=== PATIENT | female | born 1935 | race Caucasian/White ===

== ENCOUNTER 2020-04-29 09:07 | Inpatient (IN) ==
--- NOTE | 2020-04-11 15:48 | PAT Medication Instructions ---
Medication Instructions Date of Service April 11, 2020 Home Medications acetaminophen [Acetaminophen Extra Strength] 500 mg PO TID calcium carbonate-vitamin D3 [Calcium 600 + D(3)] 1 cap PO BID cholecalciferol (vitamin D3) [Vitamin D3] 25 mcg PO PM folic acid 1 mg PO QAM gtjdacln-ztkv-snu7-C-frank-bosw [Osteo Bi-Flex Triple Strength] 1 tab PO PM lifitegrast 1 drp OPHTHALMIC (EYE) BID lutein 40 mg PO PM methotrexate sodium 12.5 mg PO WK metoprolol succinate 12.5 mg PO QAM ipidorps-eqw-ihgt-FA-lutein [Centrum Silver Women] 1 tab PO QAM omega 1-ose-ocq-fish oil [Fish Oil] 2 cap PO BID rivaroxaban [Xarelto] 15 mg PO PM ASK your prescriber and surgeon methotrexate sodium 12.5 mg PO WK rivaroxaban [Xarelto] 15 mg PO PM STOP taking 2 weeks before surgery (or as soon as possible if surgery is within 2 weeks) oagfkwgz-brfk-jih3-C-frank-bosw [Osteo Bi-Flex Triple Strength] 1 tab PO PM omega 9-kub-puu-fish oil [Fish Oil] 2 cap PO BID lutein 40 mg PO PM DO NOT take the morning of surgery calcium carbonate-vitamin D3 [Calcium 600 + D(3)] 1 cap PO BID folic acid 1 mg PO QAM Centrum Silver Women] 1 tab PO QAM Take morning of surgery With a small sip of water, OTHERWISE NOTHING TO EAT OR DRINK AFTER MIDNIGHT: acetaminophen [Acetaminophen Extra Strength] 500 mg PO TID (okay to take up to 4 hours prior to surgery if needed) lifitegrast 1 drp OPHTHALMIC (EYE) BID metoprolol succinate 12.5 mg PO QAM Take evening before surgery acetaminophen [Acetaminophen Extra Strength] 500 mg PO TID calcium carbonate-vitamin D3 [Calcium 600 + D(3)] 1 cap PO BID cholecalciferol (vitamin D3) [Vitamin D3] 25 mcg PO PM lifitegrast 1 drp OPHTHALMIC (EYE) BID Other Notes If you have any questions please call us at [phone] or [phone] or or [phone]
--- NOTE | 2020-04-16 10:25 | Anesthesiology Consultation ---
Date of Service April 16, 2020 Assessment & Plan (1) Encounter for pre-operative examination: Per PAT assessment on 04/16: Travel screen- Lives in [facility]. Travel to [facility] for doctor appt. No known COVID-19 positive contacts. No current COVID-19 related symptoms. No hx of COVID-19 testing in past 30 days. Per patient, surgeon is arranging preop COVID testing. Awaiting results. - Hx PONV: patient requesting scope patch. Advised patient to discuss further with anesthesiologist AM DOS regarding appropriate preop anti-emetic management. - Xarelto instructions per surgeon/prescriber. - Case reviewed with Dr. Montiel. Does not feel that patient needs further cardiac evaluation/testing from his perspective. Patient is seeing PCP prior to surgery. Will obtain office visit note (Dr. Radha Driver). Chart Review Chart Review: Patient seen in Pre Admission Testing Teaching & Discussion Pre-Anesthesia Teaching/Discussion Notes: Instructed NPO after midnight before surgery,except medications with 15 cc of water. Medication instructions provided according to the PAT guidelines. History Surgery Operation Date: 01/31/20 07:45 Proposed Procedures p L4-S1 Decompression Fusion, Spinal Cord Monitoring - Nick Shin DO Operation Date: 04/29/20 07:45 Proposed Procedures p L4-S1 Decompression Fusion, Spinal Cord Monitoring - Nick Shin DO Height/Weight Height: 5 ft 2 in Weight: 56.3 kg Allergies Allergy/AdvReac Type Severity Reaction Status Date / Time cevimeline AdvReac Unknown vision Verified 04/16/20 13:16 affected fentanyl AdvReac Unknown severe Verified 04/16/20 13:16 nausea loratadine AdvReac Unknown Headache Verified 04/09/20 10:10 NSAIDS (Non-Steroidal AdvReac Unknown n/v Verified 04/09/20 10:10 Anti-Inflamma oxycodone [From OxyContin] AdvReac Vomiting Verified 04/09/20 10:31 pregabalin [From Lyrica] AdvReac Dizziness Verified 04/09/20 10:10 Medications Home Medications Medication Instructions Recorded Confirmed Last Taken acetaminophen [Acetaminophen Extra 500 mg PO TID 04/09/20 04/09/20 Unknown Strength] calcium carbonate-vitamin D3 1 cap PO BID 04/09/20 04/09/20 Unknown [Calcium 600 + D(3)] cholecalciferol (vitamin D3) 25 mcg PO PM 04/09/20 04/09/20 Unknown [Vitamin D3] folic acid 1 mg PO QAM 04/09/20 04/09/20 Unknown qqenjyxj-inij-qxn8-C-frank-bosw 1 tab PO PM 04/09/20 04/09/20 Unknown [Osteo Bi-Flex Triple Strength] lifitegrast 1 drp OPHTHALMIC (EYE) BID 04/09/20 04/09/20 Unknown lutein 40 mg PO PM 04/09/20 04/09/20 Unknown methotrexate sodium 12.5 mg PO WK 04/09/20 04/09/20 Unknown metoprolol succinate 12.5 mg PO QAM 04/09/20 04/09/20 Unknown nxtdwgyj-btt-sqrp-FA-lutein 1 tab PO QAM 04/09/20 04/09/20 Unknown [Centrum Silver Women] omega 1-sui-bfh-fish oil [Fish Oil] 2 cap PO BID 04/09/20 04/09/20 Unknown rivaroxaban [Xarelto] 15 mg PO PM 04/09/20 04/09/20 Unknown Past Medical History Medical History Atrial fibrillation single episode during 2016 admission for choking/elevated enzymes- on Metoprolol/Xarelto, sinus rhythm per 04/2020 EKG CAD (coronary artery disease) mild, non-obstructive per 2017 cardiac cath Choking Hx of choking on a pill 01/2017. Patient's did heimlich maneuver. Patient then found to have elevated enzymes. Had cardiac cath with mild, non- obstructive CAD. 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 History of breast biopsy left History of cataract surgery bilat History of colonoscopy History of esophagogastroduodenoscopy (EGD) History of hysterectomy History of tonsillectomy History of tooth extraction History of total hip arthroplasty left Vaginal prolapse with repair Past Anesthesia History No Family Hx of Anesthesia Complications and Other (patient reports delay with spinal wearing off with left hip arthroplasty repair (no issues with other hip surgery)) History of PONV No Hx of Motion Sickness and History of PONV Social History Smoking Status: Never smoker Do You Dip or Chew Tobacco: No Hx Alcohol Use: No Hx Substance Use: No substance use type: does not use Review of Systems Patient denies chest pain, shortness of breath, fever, chills, cough, wheezing, palpitations. Physical Exam Vital Signs VITALS BP 178/76 P 53 TEMP 98.4 SP02 96% RESP 16 PHYSICAL Full neck and c-spine range of motion. Full TMJ range of motion. TMD 3 finger breaths Mallampati Score 2 Dentition: upper/lower full dentures Lungs: clear throughout to auscultation Cardiac: regular rate and rhythm, no murmurs noted Spine: normal Carotid arteries: negative bruit Extremities: no edema Testing Laboratory Results 04/16/20 10:49 04/16/20 10:49 PT 10.5 Seconds (9.0-12.0) 04/16/20 10:49 INR 1.0 (0.9-1.1) 04/16/20 10:49 APTT 27.9 Seconds (21.0-31.0) 04/16/20 10:49 Urine Color Yellow 04/16/20 10:49 Urine Appearance Clear (Clear) 04/16/20 10:49 Urine pH 7.5 (4.5-7.5) 04/16/20 10:49 Ur Specific [place] 1.011 (1.000-1.030) 04/16/20 10:49 Urine Protein Negative (Negative) 04/16/20 10:49 Urine Glucose (UA) Negative (Negative) 04/16/20 10:49 Urine Ketones Negative (Negative) 04/16/20 10:49 Urine Nitrite Negative (Negative) 04/16/20 10:49 Ur Leukocyte Esterase Negative (Negative) 04/16/20 10:49 Blood Type O Negative 04/16/20 10:49 Antibody Screen NEGATIVE 04/16/20 10:49 Electrocardiogram Date: 04/16/20 SB with first degree AVB at 47bpm. LAD. LVH with repolarization abnormality. 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 Chest X-Ray Date: 08/09/19 Findings: + NAD Echocardiogram Date: 03/15/17 EF 50-55%. Moderate NC. Mild AR. Minimal global HK. Cardiac Catheterization Date: 02/01/17 1st diagonal ostial- 50%. No other significant CAD. EF 40%. Cervical Spine Date: 04/16/20 Demineralized appearance the bones. No prevertebral soft tissue swelling. Severe multilevel disc space narrowing with spondylitic spurring and advanced facet arthrosis. Normal predental interval. No subluxation with neutral, flexion or extension. 3 mm anterolisthesis C5 on C6 unchanged throughout. IMPRESSION: Unchanged alignment with neutral, flexion and extension. Multilevel advanced degenerative changes are redemonstrated.
--- NOTE | 2020-04-16 11:27 | XRay Report ---
XR cervical spine 2 or 3V HISTORY: 85 years-old Female RHEUMATOID ARTHRITIS preoperative exam. History of inflammatory arthrit is COMPARISON: Cervical spine radiographs 07/14/2017 TECHNIQUE: 3 views of the cervical spine FINDINGS: Demineralized appearance the bones. No prevertebral soft tissue swelling. Severe multilevel disc spac e narrowing with spondylitic spurring and advanced facet arthrosis. Normal predental interval. No sub luxation with neutral, flexion or extension. 3 mm anterolisthesis C5 on C6 unchanged throughout. IMPRESSION: Unchanged alignment with neutral, flexion and extension. Multilevel advanced degenerative changes are redemonstrated. ACT 112: Negative or not required by law. The above report was generated using voice recognition software. It may contain grammatical, syntax o r spelling errors. Electronically signed by: Christiano Valenzuela M.D. 04/16/2020 11:25 AM
[2020-04-16 12:23] LABS: Basophils # (auto) 0.02 K/uL (0-0.2); Basophils % (auto) 0.3 %; Eosinophils # (auto) 0.08 K/uL (0-0.5); Eosinophils % (auto) 1.1 %; Hematocrit (blood only) 37.6 % (37-47); Hemoglobin 12.6 g/dL (12.0-16.0); Immature Granulocytes # (auto) 0.01 K/uL (0.00-0.02); Immature Granulocytes % (auto) 0.1 %; Lymphocytes # (auto) 1.95 K/uL (1.2-3.4); Lymphocytes % (auto) 26.9 %; Mean Corpuscular Hemoglobin 34.7 pg (25-34); Mean Corpuscular Hgb Conc 33.5 g/dL (32-36); Mean Corpuscular Volume 103.6 fL (80-100); Mean Platelet Volume 9.8 fL (7.4-10.4); Monocytes # (auto) 0.61 K/uL (0.11-0.59); Monocytes % (auto) 8.4 %; Neutrophils # (auto) 4.59 K/uL (1.4-6.5); Neutrophils % (auto) 63.2 %; Platelet Count 297 K/uL (130-400); RDW Coefficient of Variation 13.6 % (11.5-14.5); RDW Standard Deviation 51.4 fL (36.4-46.3); Red Blood Count 3.63 M/uL (4.2-5.4); White Blood Count 7.26 K/uL (4.8-10.8)
[2020-04-16 12:26] LABS: Appearance Urine Clear (Clear); Bilirubin Urine Negative (Negative); Blood Urine Negative (Negative); Color Urine Yellow; Glucose Urine UA Negative (Negative); Ketones Urine Negative (Negative); Leukocyte Esterase Urine Negative (Negative); Nitrite Urine Negative (Negative); Protein Urine Negative (Negative); Specific Gravity Urine 1.011 (1.000-1.030); Urobilinogen Urine Negative (Negative); pH Urine 7.5 (4.5-7.5)
[2020-04-16 12:36] LABS: Partial Thromboplastin Time 27.9 Seconds (21.0-31.0); Prothrombin Time 10.5 Seconds (9.0-12.0)
[2020-04-16 13:56] LABS: BUN Creatinine Ratio 25.6 (10-20); Calcium 8.8 mg/dl (8.5-10.1); Creatinine Clr Calc Pharmacy 58.1 ml/min; Est GFR (African American) 98.4; Est GFR (Non-African American) 84.9; Potassium 4.1 mmol/L (3.5-5.1)
--- NOTE | 2020-04-17 06:43 | Electrocardiogram Report ---
Test Reason : Blood Pressure : / mmHG Vent. Rate : 047 BPM Atrial Rate : 047 BPM P-R Int : 218 ms QRS Dur : 098 ms QT Int : 468 ms P-R-T Axes : -02 -31 043 degrees QTc Int : 414 ms Sinus bradycardia with 1st degree A-V block Left axis deviation Left ventricular hypertrophy with repolarization abnormality Abnormal ECG When compared with ECG of 06-FEB-2016 16:12, No significant change was found Confirmed by Jam Maldonado ([id number]) on 04/17/2020 6:43:20 AM Referred By: Nick Shin Confirmed By:Jam Maldonado
[~2020-04-29 09:07] MED LIST: ACETAMINOPHEN 500 MG TAB PO SCH; CEFAZOLIN 1000MG 1,000 MG/7.5 ML SYR IV SCH; CeleBREX 200 MG CAP PO SCH; GABAPENTIN 300 MG CAP PO SCH; GLYCOPYRROLATE 0.2 MG/ML VIAL ONE; LIDOCAINE HCL 2% 2 ML VIAL/AMP(20MG/ML) INFIL ONE; LR 15ML/HR IV SCH; NEOSTIGMINE METHYLSULFATE 1 MG/ML 10ML VIAL ONE; ONDANSETRON INJ 2 MG/ML 2 ML VIAL ONE; PROPOFOL IV EMULSION 10 MG/ML 20 ML VIAL IV ONE; ROCURONIUM BROMIDE 10 MG/ML 5 ML VIAL IV ONE; fentaNYL citrate 100 MCG/2 ML VIAL ONE
[2020-04-29] MEDS ORDERED: CeleBREX 200 MG CAP ONE (09:31)
[2020-04-29] MEDS ORDERED: ACETAMINOPHEN 500 MG TAB ONE (09:31)
[2020-04-29] MEDS ORDERED: GABAPENTIN 300 MG CAP ONE (09:31)
[2020-04-29] MEDS ORDERED: CEFAZOLIN 1,000 MG/7.5 ML IV PUSH IV ONE (09:32)
[2020-04-29] MEDS ORDERED: PROMETHAZINE HCL 12.5 MG in SODIUM CHLORIDE 0.9% 50 ML IV PRN ×2 (10:23→16:00)
[2020-04-29] MEDS ORDERED: ATROPINE SULFATE 0.1 MG/ML 10ML SYR IV PRN (10:23)
[2020-04-29] MEDS ORDERED: ONDANSETRON INJ 2 MG/ML 2 ML VIAL IV PRN ×2 (10:23→16:00)
[2020-04-29] MEDS ORDERED: ePHEDrine sulfate 50 MG/ML AMP IV PRN (10:23)
--- NOTE | 2020-04-29 10:52 | History & Physical Bridge Note ---
Date of Service April 29, 2020 History & Physical Bridge Note I have examined the patient, reviewed the History & Physical and in the interval since the performance of the History & Physical I have noted the following changes of clinical significance: no changes noted
--- NOTE | 2020-04-29 10:53 | History & Physical Report ---
Date of Service April 29, 2020 Assessment & Plan (1) Neurogenic claudication due to lumbar spinal stenosis: L4-S1 decompression fusion Present on Admission?: Yes History of Present Illness Chief Complaint: Back and bilateral leg pain Primary Care Provider: Radha Driver This is an 85-year-old female who presents with worsening back and bilateral leg pain. After failing course of nonoperative care is here for surgical invention. Allergies Allergy/AdvReac Type Severity Reaction Status Date / Time cevimeline AdvReac Unknown vision Verified 04/29/20 10:01 affected fentanyl AdvReac Unknown severe Verified 04/29/20 10:01 nausea loratadine AdvReac Unknown Headache Verified 04/29/20 10:01 NSAIDS (Non-Steroidal AdvReac Unknown n/v Verified 04/29/20 10:01 Anti-Inflamma oxycodone [From OxyContin] AdvReac Vomiting Verified 04/29/20 10:01 pregabalin [From Lyrica] AdvReac Dizziness Verified 04/29/20 10:01 Home Medications Home Medications Medication Instructions Recorded Confirmed Type acetaminophen [Acetaminophen Extra 500 mg PO TID 04/09/20 04/29/20 History Strength] calcium carbonate-vitamin D3 1 cap PO BID 04/09/20 04/29/20 History [Calcium 600 + D(3)] cholecalciferol (vitamin D3) 25 mcg PO PM 04/09/20 04/29/20 History [Vitamin D3] folic acid 1 mg PO QAM 04/09/20 04/29/20 History sndkkwln-nicx-anm9-C-frank-bosw 1 tab PO PM 04/09/20 04/29/20 History [Osteo Bi-Flex Triple Strength] lifitegrast 1 drp OPHTHALMIC (EYE) BID 04/09/20 04/29/20 History lutein 40 mg PO PM 04/09/20 04/29/20 History methotrexate sodium 12.5 mg PO WK 04/09/20 04/29/20 History metoprolol succinate 12.5 mg PO QAM 04/09/20 04/29/20 History nrvtdsve-ewj-gjtd-FA-lutein 1 tab PO QAM 04/09/20 04/29/20 History [Centrum Silver Women] omega 9-clv-bls-fish oil [Fish Oil] 2 cap PO BID 04/09/20 04/29/20 History rivaroxaban [Xarelto] 15 mg PO PM 04/09/20 04/29/20 History Past Med/Surg History Medical History Atrial fibrillation single episode during 2016 admission for choking/elevated enzymes- on Metoprolol/Xarelto, sinus rhythm per 04/2020 EKG CAD (coronary artery disease) mild, non-obstructive per 2016 cardiac cath Choking Hx of choking on a pill 01/2017. Patient's did heimlich maneuver. Patient then found to have elevated enzymes. Had cardiac cath with mild, non- obstructive CAD. 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 History of breast biopsy left History of cataract surgery bilat History of colonoscopy History of esophagogastroduodenoscopy (EGD) History of hysterectomy History of tonsillectomy History of tooth extraction History of total hip arthroplasty left Vaginal prolapse with repair Family History Aunt Diabetes Social History Preferred Language: Bhutanese Communication Ability: Effective 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 Heart regular rate and rhythm. Lungs clear to auscultation. Results & Data Vital Signs (Past 12 Hours) Vital Signs Temp Pulse Resp BP Pulse Ox 04/29/20 10:06 36.4 C L 60 20 193/94 H 99
[2020-04-29] MEDS ORDERED: BACITRACIN INJ 50,000 UNIT VIAL ONE (11:06)
[2020-04-29] MEDS ORDERED: BUPIVACAINE/EPINEPHRINE 0.25% 1:200,000 30 ML VIAL ONE (11:06)
[2020-04-29] MEDS ORDERED: ePHEDrine sulfate 50 MG/ML SYR ONE (12:19)
[2020-04-29] MEDS ORDERED: FLOSEAL HEMOSTATIC MATRIX 10ML TOP ONE (13:00)
--- NOTE | 2020-04-29 13:49 | Operative Report ---
Post Operative Report Pre & Post Diagnosis Operation Date: 01/31/20 07:45 <No data on this case meets the specified criteria> Operation Date: 04/29/20 11:05 Pre-Op Diagnosis: Spinal Stenosis, Lumbar Region with Neurogenic Claudication L4-S1 Post-Op Diagnosis: Spinal Stenosis, Lumbar Region with Neurogenic Claudication L4-S1 I identified the patient and participated in the time-out.: Yes Procedure Operation Date: 01/31/20 07:45 <No data on this case meets the specified criteria> Operation Date: 04/29/20 11:05 Actual Procedures #1 lumbar decompression with bilateral medial facetectomies and foraminotomies L4-5 L5-S1. #2 posterior spinal fusion L4-5 L5-S1. #3 placement posterior instrumentation L4-5 L5-S1. #4 placement of local autograft in the posterior lateral gutters per #5 placement for his collagen sponge and master graft in the posterior lateral gutters L4-5 L5-S1. Surgeon Nick Shin, Collections And Archives Director Hien Gallardo Estimated Blood Loss 100 Findings Consistent with Post-Op Diagnosis Specimens None Indications This is an 85-year-old female who presents with above-mentioned diagnosis after failed extensive course of nonoperative care is here for the above-mentioned procedure. Description of Procedure Patient was met with identified informed consent obtained. Patient was then taken to the operative suite underwent an patient placed in a prone position the Moshe table on top of the Josiah frame. All bony prominences well-padded eyes inspected to ensure no external pressure placed upon them. This point the lumbar spine was prepped and draped in normal sterile fashion. Sharp dissection with the assistance of Bovie cautery was performed down to and exposing the lamina and transverse processes of L4-L5 and sacral ala bilaterally. From a caudal cephalad fashion complete laminectomy of L5 and L4 was performed including bilateral medial facetectomies and foraminotomies addressing severe spinal stenosis. Pedicle screws were then placed in L4-L5 and the S1 levels bilaterally with assistance of fluoroscopy and appropriate sized diane locked into position. The transverse processes of L4 and L5 and sacral ala were then burred to subcortical bleeding bone. Infuse collagen sponge master graft local autograft was then placed in the posterior gutters. 15 round JOANNA drain inserted. Incision was then closed with 1 Vicryl the fascia 2-0 Vicryl subcutaneously and 4 Monocryl for final skin closure. Steri-Strip sterile dressings placed. Patient will continue PACU stable condition. Please note spinal cord monitoring was utilized that the procedure no changes noted. I attest to the content of the Intraoperative Record and any orders documented therein. Any exceptions are noted below.
--- NOTE | 2020-04-29 13:51 | Fluoroscopy Report ---
INTRAOPERATIVE RADIOGRAPHS CLINICAL HISTORY: L4-S1 spinal fusion. Fluoroscopy time: 28 seconds. FINDINGS: 2 spot fluoroscopic views of the lumbar spine are presented. There has been laminectomy and posterior fusion from L4-S1. Interpedicular screws are present at all levels. The orthopedic hardwar e appears intact. IMPRESSION: Intraoperative images from L4-S1 spinal fusion as above. Electronically signed by: Lion Zarate M.D. 04/29/2020 1:49 PM
[2020-04-29] MEDS: HYDROmorphone INJ 1 MG/ML SYRINGE IV PRN ×3 (14:14→14:29)
--- NOTE | 2020-04-29 14:44 | Anesthesiology Progress Note ---
Date of Service April 29, 2020 Anesthesia Post Procedure Vital Signs Vital Signs: Temp Pulse Pulse Resp BP BP Pulse Ox 04/29/20 14:40 57 L 15 180/64 H 98 04/29/20 14:30 58 L 17 148/70 H 97 04/29/20 14:20 61 17 165/84 H 100 04/29/20 14:10 64 15 172/68 H 100 04/29/20 14:01 36.3 C L 79 21 159/78 H 100 04/29/20 10:06 36.4 C L 60 20 193/94 H 99 Pain Intensity Back: Pain Intensity: 4 Transfer of Care Handoff Completed per policy Notes Mental Status: alert / awake / arousable and participated in evaluation Patient Amnestic to Procedure: Yes Nausea / Vomiting: adequately controlled Pain: adequately controlled Airway Patency, RR, SpO2: stable & adequate BP & HR: stable & adequate Hydration State: stable & adequate Anesthetic Complications: no major complications apparent and Pt Satisfied with anesthetic care
[2020-04-29] MEDS ORDERED: NALOXONE HCL 0.4 MG/1 ML VIAL/CARP IV PRN (16:00)
[2020-04-29] MEDS ORDERED: LORazepam 0.5 MG/1 ML VIAL IV PRN (16:00)
[2020-04-29] MEDS ORDERED: bisacodyL 10 MG SUPP PR PRN (16:00)
[2020-04-29] MEDS ORDERED: ALUMINUM/MAGNESIUM SUSP 30 ML UDC PO PRN (16:00)
[2020-04-29] MEDS ORDERED: LORazepam 0.5 MG TAB PO PRN (16:00)
[2020-04-29] MEDS ORDERED: DO NOT ADMINISTER PNEUMOCOCCAL VACCINE PRN (16:00)
[2020-04-29] MEDS ORDERED: HYDROmorphone INJ 1 MG/ML SYRINGE IV PRN (16:00)
[2020-04-29] MEDS ORDERED: METOCLOPRAMIDE HCL INJ 5 MG/ML 2 ML VIAL IV PRN (16:00)
[2020-04-29] MEDS ORDERED: HYDROmorphone INJ 0.5 MG/0.5 ML SYR IV PRN (16:00)
[2020-04-29] MEDS ORDERED: FAMOTIDINE 20 MG TAB PO PRN (16:00)
[2020-04-29] MEDS ORDERED: SOD PHOSPHATE/SOD BIPHOSPHATE ENEMA 132 ML BTL PR PRN (16:00)
[2020-04-29] MEDS ORDERED: ACETAMINOPHEN 1,000 MG/100 ML VIAL IV PRN (16:00)
[2020-04-29] MEDS ORDERED: MAGNESIUM HYDROXIDE SUSP 30 ML UDC PO PRN (16:00)
[2020-04-29] MEDS ORDERED: DO NOT ADMINISTER FLU VACCINE PRN (16:00)
--- NOTE | 2020-04-29 16:00 | Hospitalist Consultation ---
Date of Consultation April 29, 2020 Assessment & Plan (1) S/P spinal surgery: This is an 85-year-old female with PMH of hypertension, rheumatoid arthritis, paroxysmal atrial fibrillation on anticoagulation who is POD#0 s/p L4-S1 decompression and fusion by Dr. Shin. -POD#0 s/p L4-S1 decompression and fusion by Dr. Shin -Pt is doing well post-operatively -Per ortho for pain control, wound care, anticoagulation and activities -Monitor H&H (EBL: 100ml, JOANNA output 80 ml). Continue incentive spirometry, PT/OT when appropriate (2) Atrial fibrillation: Continue metoprolol -Xarelto has been held since 04/26. Directed by cardiology to resume as soon as possible post surgery, per primary service (3) HTN (hypertension): BP elevated at 192/72 postoperatively. Repeat BP 179/67 -Optimize pain control. Reduce fluid rate. Continue home metoprolol 12.5mg daily (4) Rheumatoid arthritis: Methotrexate held for 2 weeks preoperatively. Follow-up with PCP for instructions to resume PCP: Radha Driver Dispo: Per primary service Thank you for this consultation. We will follow the patient with you during their hospital stay. You can reach a member of the [facility] Team 03/05 via pager @ [phone]. Patient seen in collaboration with Dr. Landry. Please see addendum. Supervising Physician Co-Signing Physician Notes Patient is an 85-year-old female with history of hypertension, rheumatoid arthritis, paroxysmal atrial fibrillation and other medical problems was seen and examined postop after having L4-S1 decompression and fusion by Dr. Shin. Patient is drowsy postoperatively. She denies any chest pain, shortness of breath, dizziness but admits to have some nausea but no vomiting. Complains of pain at surgical site. Offers no other complaints. On exam patient is moderately built and nourished, no apparent distress, drowsy, normocephalic atraumatic, lungs are clear to auscultation, S1-S2,+ murmur, abdomen soft, nontender, normal bowel sounds, no pedal edema, grossly no focal neurologic deficits,back-surgical site in dressing. Patient is consulted postop for medical management. Monitor for postop anemia. Bowel regimen to prevent constipation. Incentive spirometry. Activity, wound care, pain control as per primary team. Continue metoprolol for atrial fibrillation. Resume Xarelto as able for anticoagulation. I personally reviewed the record. Patient is interviewed and examined at bedside. Patient's care is coordinated with Juli Salgado PA-C. Please refer to the documentation above for details of patient's presentation and for discussion of other issues. History of Present Illness Reason for Consultation: Postop medical management Attending Physician: Nick Shin, History of Present Illness This is an 85-year-old female with PMH of hypertension, rheumatoid arthritis, paroxysmal atrial fibrillation on anticoagulation who is POD#0 s/p L4-S1 decompression and fusion by Dr. Shin. Patient feels well postoperatively. Endorses some minor surgical site pain as well as some nausea but no vomiting. Denies any fever, chills, lightheadedness, cough, chest pain, shortness of breath, abdominal pain, dysuria, diarrhea or constipation. Blood pressure at bedside 179/67, which is decreased from previous rate of 192/72. Follows with [facility] of [facility] for paroxysmal atrial fibrillation and was instructed to hold Xarelto 3 days prior to surgery. Also takes methotrexate weekly for rheumatoid arthritis but was told to stop taking 2 weeks prior to surgery. Allergies Allergy/AdvReac Type Severity Reaction Status Date / Time cevimeline AdvReac Unknown vision Verified 04/29/20 10:01 affected fentanyl AdvReac Unknown severe Verified 04/29/20 10:01 nausea loratadine AdvReac Unknown Headache Verified 04/29/20 10:01 NSAIDS (Non-Steroidal AdvReac Unknown n/v Verified 04/29/20 10:01 Anti-Inflamma oxycodone [From OxyContin] AdvReac Vomiting Verified 04/29/20 10:01 pregabalin [From Lyrica] AdvReac Dizziness Verified 04/29/20 10:01 Home Medications Home Medications Medication Instructions Recorded Confirmed Type acetaminophen [Acetaminophen Extra 500 mg PO TID 04/09/20 04/29/20 History Strength] calcium carbonate-vitamin D3 1 cap PO BID 04/09/20 04/29/20 History [Calcium 600 + D(3)] cholecalciferol (vitamin D3) 25 mcg PO PM 04/09/20 04/29/20 History [Vitamin D3] folic acid 1 mg PO QAM 04/09/20 04/29/20 History vvuqcxls-sidh-mnz2-C-frank-bosw 1 tab PO PM 04/09/20 04/29/20 History [Osteo Bi-Flex Triple Strength] lifitegrast 1 drp OPHTHALMIC (EYE) BID 04/09/20 04/29/20 History lutein 40 mg PO PM 04/09/20 04/29/20 History methotrexate sodium 12.5 mg PO WK 04/09/20 04/29/20 History metoprolol succinate 12.5 mg PO QAM 04/09/20 04/29/20 History silzeqjb-qyp-hpwh-FA-lutein 1 tab PO QAM 04/09/20 04/29/20 History [Centrum Silver Women] omega 6-eej-sda-fish oil [Fish Oil] 2 cap PO BID 04/09/20 04/29/20 History rivaroxaban [Xarelto] 15 mg PO PM 04/09/20 04/29/20 History Patient History Medical History (Updated 04/29/20 @ 16:31 by Juli Salgado PA-C) Atrial fibrillation CAD (coronary artery disease) mild, non-obstructive per 2017 cardiac cath Choking Hx of choking on a pill 01/2017. Patient's did heimlich maneuver. Patient then found to have elevated enzymes. Had cardiac cath with mild, non- obstructive CAD. 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 History of breast biopsy left History of cataract surgery bilat History of colonoscopy History of esophagogastroduodenoscopy (EGD) History of hysterectomy History of tonsillectomy History of tooth extraction History of total hip arthroplasty left Vaginal prolapse with repair Family History Aunt Diabetes Other Heart disease Social History Smoking Status: Never smoker Second Hand Exposure: No; Do You Dip or Chew Tobacco: No; Tobacco Cessation Education Requested by Patient: No Hx Alcohol Use: No Hx Substance Use: No Preferred Language: Ukrainian Communication Ability: Effective Outpatient Pharmacy Manager Required: No Beliefs That Will Affect Care: None Current Living Situation: Spouse Other Information That Helps Us Care for You: No Feels Safe at Home: Yes Safety Concerns: Feels Safe At This Time Review of Systems Review of Systems: At least ten systems reviewed and negative except as noted in the HPI. Physical Exam Physical Exam: General Appearance: WD/WN, vitals as above, NAD, lying in bed, pleasant Head: normocephalic, atraumatic Eyes: normal inspection, PERRL, conjunctivae normal, anicteric sclerae ENT: external ear and nose normal, oropharynx normal Neck: trachea midline, no thyromegaly, normal visual inspection Respiratory: normal respiratory effort, lungs clear to auscultation, no wheeze, rales, rhonchi Cardiovascular: regular rate, rhythm, no murmur, normal peripheral pulses Chest: normal inspection of chest Abdomen/GI: normal bowel sounds, soft, nontender, no hepatosplenomegaly Extremities/Musculoskeletal: no cyanosis or clubbing, extremities motor strength 5/5. + Lumbosacral dressing clean, dry, intact. JOANNA drain visualized with sanguineous output Neurologic: PERRL, CN's II-XI intact bilaterally and moves all extremities Psychiatric: A+Ox3, euthymic affect Skin: no rashes, normal color, warm/dry Results & Data Results & Data ([facility]) Vital Signs (Past 12 Hours) Vital Signs Temp Pulse Pulse Resp BP BP Pulse Ox 04/29/20 15:32 36.4 C L 60 16 188/72 H 99 04/29/20 15:15 55 L 20 161/61 H 98 04/29/20 15:00 57 L 15 165/65 H 98 04/29/20 14:50 36.4 C L 55 L 17 177/64 H 99 04/29/20 14:40 57 L 15 180/64 H 98 04/29/20 14:30 58 L 17 148/70 H 97 04/29/20 14:20 61 17 165/84 H 100 04/29/20 14:10 64 15 172/68 H 100 04/29/20 14:01 36.3 C L 79 21 159/78 H 100 04/29/20 10:06 36.4 C L 60 20 193/94 H 99
[2020-04-29] MEDS: SODIUM CHLORIDE 0.9% 1000ML 1,000 ML IV SCH ×2 (16:02→23:19)
[2020-04-29] MEDS: ONDANSETRON 4 MG OD TAB PO PRN (19:15)
[2020-04-29] MEDS: CEFAZOLIN 1000MG 1,000 MG/7.5 ML SYR IV SCH (20:49)
[2020-04-29] MEDS: CHOLECALCIFEROL 1,000 UNITS 25 MCG TAB PO SCH (20:49)
[2020-04-29] MEDS: CALCIUM 600MG + VIT D 400 IU TAB PO SCH (20:49)
[2020-04-29] MEDS: DOCUSATE SODIUM/SENNA 50/8.6MG TAB PO SCH (21:31)
[2020-04-30] MEDS: CEFAZOLIN 1000MG 1,000 MG/7.5 ML SYR IV SCH (03:44)
[2020-04-30] MEDS: TRAMADOL HCL 50 MG TABLET PO PRN (03:50)
[2020-04-30] MEDS: POLYETHYLENE (MIRALAX) 17 GM PACK PO SCH ×4 (05:57→23:37)
[2020-04-30] MEDS: ONDANSETRON 4 MG OD TAB PO PRN (05:57)
[2020-04-30 06:32] LABS: Basophils # (auto) 0.01 K/uL (0-0.2); Basophils % (auto) 0.1 %; Hematocrit (blood only) 30.9 % (37-47); Hemoglobin 10.2 g/dL (12.0-16.0); Immature Granulocytes # (auto) 0.01 K/uL (0.00-0.02); Immature Granulocytes % (auto) 0.1 %; Lymphocytes # (auto) 1.27 K/uL (1.2-3.4); Lymphocytes % (auto) 16.1 %; Mean Corpuscular Hemoglobin 33.3 pg (25-34); Monocytes # (auto) 0.61 K/uL (0.11-0.59); Monocytes % (auto) 7.8 %; Neutrophils # (auto) 5.97 K/uL (1.4-6.5); Neutrophils % (auto) 75.9 %; Platelet Count 243 K/uL (130-400); RDW Coefficient of Variation 13.2 % (11.5-14.5); RDW Standard Deviation 48.7 fL (36.4-46.3); Red Blood Count 3.06 M/uL (4.2-5.4); White Blood Count 7.87 K/uL (4.8-10.8)
[2020-04-30 07:04] LABS: BUN Creatinine Ratio 19.2 (10-20); Calcium 7.6 mg/dl (8.5-10.1); Creatinine Clr Calc Pharmacy 72.6 ml/min; Est GFR (African American) 105.9; Est GFR (Non-African American) 91.4; Potassium 3.9 mmol/L (3.5-5.1)
[2020-04-30] MEDS: SODIUM CHLORIDE 0.9% 1000ML 1,000 ML IV SCH ×2 (08:01→23:41)
--- NOTE | 2020-04-30 08:02 | Anesthesiology Progress Note ---
Date of Service April 30, 2020 Anesthesia Post Procedure Vital Signs Vital Signs: Temp Pulse Pulse Resp BP BP Pulse Ox 04/30/20 07:44 36.6 C 70 18 145/65 H 97 04/30/20 04:04 36.5 C 75 16 143/66 H 96 04/29/20 23:35 36.4 C L 69 16 143/72 H 96 04/29/20 19:17 36.5 C 65 16 171/72 H 95 04/29/20 17:29 36.3 C L 63 16 176/67 H 94 04/29/20 16:32 36.4 C L 57 L 17 180/73 H 97 04/29/20 16:05 36.4 C L 60 16 192/72 H 99 04/29/20 15:32 36.4 C L 60 16 188/72 H 99 04/29/20 15:15 55 L 20 161/61 H 98 04/29/20 15:00 57 L 15 165/65 H 98 04/29/20 14:50 36.4 C L 55 L 17 177/64 H 99 04/29/20 14:40 57 L 15 180/64 H 98 04/29/20 14:30 58 L 17 148/70 H 97 04/29/20 14:20 61 17 165/84 H 100 04/29/20 14:10 64 15 172/68 H 100 04/29/20 14:01 36.3 C L 79 21 159/78 H 100 04/29/20 10:06 36.4 C L 60 20 193/94 H 99 Pain Intensity Back: Pain Intensity: 2 Notes Mental Status: alert / awake / arousable and participated in evaluation Patient Amnestic to Procedure: Yes Nausea / Vomiting: see Notes below Pain: adequately controlled Airway Patency, RR, SpO2: stable & adequate BP & HR: stable & adequate Hydration State: stable & adequate Notes: Patient stated that she has had nausea since PACU that will not go away. Patient has history of PONV. No vomiting with this procedure. Encouraged to inform anesthesia of this experience for future anesthetics.
[2020-04-30] MEDS: MULTIVITAMIN TAB PO SCH (09:00)
[2020-04-30] MEDS: METOPROLOL SUCC 25MG EXT REL TAB PO SCH (09:00)
[2020-04-30] MEDS: FOLIC ACID 1 MG TAB PO SCH (09:01)
[2020-04-30] MEDS: CALCIUM 600MG + VIT D 400 IU TAB PO SCH ×2 (09:01→21:24)
--- NOTE | 2020-04-30 09:16 | Hospitalist Progress Note ---
Date of Service April 30, 2020 Assessment & Plan (1) S/P spinal surgery: This is an 85-year-old female with PMH of hypertension, rheumatoid arthritis, paroxysmal atrial fibrillation on anticoagulation who is POD#1 s/p L4-S1 decompression and fusion by Dr. Shin. -POD#1 s/p L4-S1 decompression and fusion by Dr. Shin -Pt is doing well post-operatively -Per ortho for pain control, wound care, anticoagulation and activities -Monitor H&H (hgb of 10.1 today, 12.6 yesterday). Continue incentive spirometry, PT/OT when appropriate -Zofran for nausea as needed but improving. No vomiting. Tolerating diet (2) Atrial fibrillation: Continue metoprolol -Xarelto has been held since 04/26. Directed by cardiology to resume as soon as possible post surgery, per primary service (3) HTN (hypertension): BP improved to 145/65 -Optimize pain control. Continue home metoprolol 12.5mg daily (4) Rheumatoid arthritis: Methotrexate held for 2 weeks preoperatively. Follow-up with PCP for instructions to resume PCP: Radha Driver Dispo: Per primary service Thank you for this consultation. We will follow the patient with you during their hospital stay. You can reach a member of the [facility] Hospitalist Team 03/05 via pager @ [phone]. Patient seen in collaboration with Dr. Escamilla. Please see addendum. Admission and Anticipated Discharge Date Admission Date: April 29, 2020 Supervising Physician Co-Signing Physician Notes Pt was seen and examined. Agreed with Juli BHAKTA exam, assessment and plan. 85-year-old female with PMH of hypertension, rheumatoid arthritis, paroxysmal atrial fibrillation on anticoagulation, s/p day #1 for L4-S1 decompression and fusion performed by Dr. Shin. No postop complications noted. Xarelto help due to recent surgical procedure. Xarelto will resume once bleeding stable as per ortho. Continue pain control as per ortho. Continue Incentive spirometry. Fall precaution. Continue PT/OT. Monitor H/H. MD Andi Subjective Seen and examined in 307 bed 1. Patient feeling well today despite some continued nausea. No vomiting. And nausea has improved since yesterday. Some surgical site pain with movement. Denies any fever, chills, lightheadedness, headache, chest pain, shortness of breath, abdominal pain, dysuria, diarrhea or constipation. Still with Rea catheter in place. Passing some flatus and feels that she may have a bowel movement soon. Review of Systems Review of Systems: At least ten systems reviewed and negative except as noted in the HPI. Physical Exam Physical Exam: General Appearance: WD/WN, vitals as above, NAD, lying in bed, pleasant Head: normocephalic, atraumatic Eyes: normal inspection, PERRL, conjunctivae normal, anicteric sclerae ENT: external ear and nose normal, oropharynx normal Neck: trachea midline, no thyromegaly, normal visual inspection Respiratory: normal respiratory effort, lungs clear to auscultation, no wheeze, rales, rhonchi Cardiovascular: regular rate, rhythm, no murmur, normal peripheral pulses Chest: normal inspection of chest Abdomen/GI: normal bowel sounds, soft, nontender, no hepatosplenomegaly Extremities/Musculoskeletal: no cyanosis or clubbing, extremities motor strength 5/5. + Lumbosacral dressing clean, dry, intact. JOANNA drain visualized with serosanguineous output Neurologic: PERRL, CN's II-XI intact bilaterally and moves all extremities Psychiatric: A+Ox3, euthymic affect Skin: no rashes, normal color, warm/dry Results & Data Results & Data ([facility] [place]) Vital Signs (Past 12 Hours) Vital Signs Temp Pulse Resp BP Pulse Ox 04/30/20 07:44 36.6 C 70 18 145/65 H 97 04/30/20 04:04 36.5 C 75 16 143/66 H 96 04/29/20 23:35 36.4 C L 69 16 143/72 H 96 Laboratory Results Short CBC 04/30/20 Range/Units 05:48 WBC 7.87 (4.8-10.8) K/uL Hgb 10.2 L (12.0-16.0) g/dL Hct 30.9 L (37-47) % Plt Count 243 (130-400) K/uL BMP 04/30/20 05:48 Sodium 134 L Potassium 3.9 Chloride 104 Carbon Dioxide 26 BUN 8 Creatinine 0.44 L Glucose 114 H Calcium 7.6 L
--- NOTE | 2020-04-30 09:58 | Orthopedic Progress Note ---
Date of Service April 30, 2020 Assessment & Plan (1) Neurogenic claudication due to lumbar spinal stenosis: This time we will continue physical therapy monitor JOANNA output anticipate discharge home in the next few days. Present on Admission?: Yes Admission and Anticipated Discharge Date Admission Date: April 29, 2020 Subjective Back pain controlled leg pain improved Physical Exam Physical Exam: Patient is good strength testing appears comfortable. Results & Data ([facility]) Vital Signs (Past 12 Hours) Vital Signs Temp Pulse Resp BP Pulse Ox 04/30/20 07:44 36.6 C 70 18 145/65 H 97 04/30/20 04:04 36.5 C 75 16 143/66 H 96 04/29/20 23:35 36.4 C L 69 16 143/72 H 96
[2020-04-30] MEDS: DOCUSATE SODIUM/SENNA 50/8.6MG TAB PO SCH (21:24)
[2020-04-30] MEDS: ACETAMINOPHEN 500 MG TAB PO PRN (21:24)
[2020-04-30] MEDS: LIFITEGRAST OP SCH (21:25)
[2020-04-30] MEDS: CHOLECALCIFEROL 1,000 UNITS 25 MCG TAB PO SCH (21:25)
[2020-05-01] MEDS: ACETAMINOPHEN 500 MG TAB PO PRN ×2 (05:19→20:42)
[2020-05-01 05:57] LABS: Hemoglobin 9.6 g/dL (12.0-16.0); Mean Corpuscular Hemoglobin 34.5 pg (25-34); Mean Corpuscular Hgb Conc 34.3 g/dL (32-36); Mean Corpuscular Volume 100.7 fL (80-100); Mean Platelet Volume 8.7 fL (7.4-10.4); Platelet Count 219 K/uL (130-400); RDW Coefficient of Variation 13.5 % (11.5-14.5); RDW Standard Deviation 49.8 fL (36.4-46.3); Red Blood Count 2.78 M/uL (4.2-5.4); White Blood Count 8.15 K/uL (4.8-10.8)
[2020-05-01 06:28] LABS: BUN Creatinine Ratio 15.4 (10-20); Calcium 7.8 mg/dl (8.5-10.1); Est GFR (African American) 103.7; Est GFR (Non-African American) 89.4; Potassium 3.7 mmol/L (3.5-5.1)
--- NOTE | 2020-05-01 08:23 | Hospitalist Progress Note ---
Date of Service May 01, 2020 Assessment & Plan (1) S/P spinal surgery: This is an 85-year-old female with PMH of hypertension, rheumatoid arthritis, paroxysmal atrial fibrillation on anticoagulation who is s/p L4-S1 decompression and fusion by Dr. Shin on this admission -s/p L4-S1 decompression and fusion by Dr. Shin -post-operative blood counts appear stable -patient plans to participate in PT/OT evaluations today (2) Atrial fibrillation: Paroxysmal Atrial Fibrillation -Continue metoprolol -Xarelto has been held since 04/26. -patient should be able to resume Xarelto for stroke risk reduction from atrial fibrillation as long as orthopedic service are okay from bleed risks post- operatively. appears to be currently sinus bradycardia. will obtain EKG (3) HTN (hypertension): -Continue home metoprolol 12.5mg daily (4) Rheumatoid arthritis: -Methotrexate held for 2 weeks preoperatively. Follow-up with PCP for instructions to resume as outpatient DVT prophylaxis: SCDs Admission and Anticipated Discharge Date Admission Date: April 29, 2020 Subjective Patient reports yesterday she could not participate in physical therapy because of discomforts. Patient today reports she is feeling much better and plans to participate in therapy. no acute back pain. no acute leg pains. no chest pain. no headache. no dizziness. breathing on room air. no shortness of breath Review of Systems Review of Systems: All systems reviewed & are unremarkable except as noted in Subjective Physical Exam Constitutional: comfortable Eyes: PERRL, conjunctivae normal, anicteric sclerae EOM intact bilaterally ENMT: external ear and nose normal, oropharynx normal Neck: trachea midline, no thyromegaly normal visual inspection Respiratory: normal respiratory effort, lungs clear to auscultation Cardiovascular: Rate/Rhythm: + bradycardic Gastrointestinal (Abdomen): normal bowel sounds, soft, nontender, no h epatosplenomegaly Musculoskeletal: Head/Neck/Chest: normocephalic and head atraumatic Neurologic: PERRL, EOMI, accommodation nl, no face palsy, no dysarthria Psychiatric: A+Ox3, euthymic affect Results & Data Results & Data ([facility]) Vital Signs (Past 12 Hours) Vital Signs Temp Pulse Resp BP BP Pulse Ox 05/01/20 07:43 36.9 C 52 L 18 138/59 L 95 04/30/20 23:43 154/68 H 04/30/20 23:35 37.4 C 56 L 16 156/74 H 93 04/30/20 21:19 152/60 H
[2020-05-01] MEDS: FOLIC ACID 1 MG TAB PO SCH (09:31)
[2020-05-01] MEDS: DEXAMETHASONE SOD PHOSPHATE 6 MG in SYRINGE 0 ML IV SCH (09:31)
[2020-05-01] MEDS: MULTIVITAMIN TAB PO SCH (09:31)
[2020-05-01] MEDS: CALCIUM 600MG + VIT D 400 IU TAB PO SCH ×2 (09:31→20:42)
[2020-05-01] MEDS: LIFITEGRAST OP SCH ×2 (09:32→20:43)
[2020-05-01] MEDS: METOPROLOL SUCC 25MG EXT REL TAB PO SCH (09:33)
--- NOTE | 2020-05-01 09:50 | Orthopedic Progress Note ---
Date of Service May 01, 2020 Assessment & Plan (1) Neurogenic claudication due to lumbar spinal stenosis: This time continue physical therapy monitor JOANNA output consider possible discharge home tomorrow with home health. Present on Admission?: Yes Admission and Anticipated Discharge Date Admission Date: April 29, 2020 Subjective Back pain controlled leg pain improved nausea improved. Physical Exam Physical Exam: On exam she in the chair at the bedside is good strength testing. Results & Data ([facility]) Vital Signs (Past 12 Hours) Vital Signs Temp Pulse Pulse Resp BP BP Pulse Ox 05/01/20 09:29 65 139/72 94 05/01/20 07:43 36.9 C 52 L 18 138/59 L 95 04/30/20 23:43 154/68 H 04/30/20 23:35 37.4 C 56 L 16 156/74 H 93
[2020-05-01] MEDS: predniSONE 10 MG TABLET PO SCH (10:47)
--- NOTE | 2020-05-01 12:44 | Electrocardiogram Report ---
Test Reason : Blood Pressure : / mmHG Vent. Rate : 054 BPM Atrial Rate : 054 BPM P-R Int : 206 ms QRS Dur : 100 ms QT Int : 440 ms P-R-T Axes : -01 -14 019 degrees QTc Int : 417 ms Sinus bradycardia Moderate voltage criteria for LVH, may be normal variant Poor R wave progression, consider anterior IA vs. lead placement vs. LVH Abnormal ECG When compared with ECG of 16-APR-2020 10:45, No significant change was found Confirmed by Chadd Riggs ([id number]) on 05/01/2020 12:43:50 PM Referred By: Nick Shin Confirmed By:Chadd Riggs
[2020-05-01] MEDS: CHOLECALCIFEROL 1,000 UNITS 25 MCG TAB PO SCH (20:42)
[2020-05-01] MEDS: DOCUSATE SODIUM/SENNA 50/8.6MG TAB PO SCH (20:45)
[2020-05-02 06:31] LABS: Basophils # (auto) 0.01 K/uL (0-0.2); Basophils % (auto) 0.1 %; Eosinophils # (auto) 0.07 K/uL (0-0.5); Eosinophils % (auto) 0.9 %; Hematocrit (blood only) 27.9 % (37-47); Hemoglobin 9.4 g/dL (12.0-16.0); Immature Granulocytes # (auto) 0.02 K/uL (0.00-0.02); Immature Granulocytes % (auto) 0.3 %; Lymphocytes # (auto) 2.41 K/uL (1.2-3.4); Lymphocytes % (auto) 30.5 %; Mean Corpuscular Hemoglobin 34.1 pg (25-34); Mean Corpuscular Hgb Conc 33.7 g/dL (32-36); Mean Corpuscular Volume 101.1 fL (80-100); Mean Platelet Volume 9.1 fL (7.4-10.4); Monocytes # (auto) 0.65 K/uL (0.11-0.59); Monocytes % (auto) 8.2 %; Neutrophils # (auto) 4.74 K/uL (1.4-6.5); Platelet Count 223 K/uL (130-400); RDW Coefficient of Variation 13.5 % (11.5-14.5); RDW Standard Deviation 49.4 fL (36.4-46.3); Red Blood Count 2.76 M/uL (4.2-5.4)
[2020-05-02] MEDS: TRAMADOL HCL 50 MG TABLET PO PRN (06:32)
[2020-05-02 07:02] LABS: Albumin Level 2.2 gm/dl (3.4-5.0); BUN Creatinine Ratio 25.1 (10-20); Calcium 8.2 mg/dl (8.5-10.1); Creatinine Clr Calc Pharmacy 77.9 ml/min; Est GFR (African American) 108.4; Est GFR (Non-African American) 93.5; Potassium 3.5 mmol/L (3.5-5.1)
[2020-05-02 07:05] LABS: Albumin Globulin Ratio 0.5 (0.9-2); Bilirubin,Total 0.6 mg/dl (0.2-1); Globulin 4.4 gm/dl (2.5-4.0); Total Protein 6.6 gm/dl (6.4-8.2)
[2020-05-02] MEDS ORDERED: POTASSIUM CHLORIDE 20 MEQ/15 ML UDC PO ONE (07:45)
[2020-05-02] MEDS ORDERED: POTASSIUM CHLORIDE / WTR 10 MEQ/100 ML PLCT IV ONE (07:45)
[2020-05-02] MEDS: ACETAMINOPHEN 500 MG TAB PO PRN ×3 (07:45→23:34)
--- NOTE | 2020-05-02 08:14 | Hospitalist Progress Note ---
Date of Service May 02, 2020 Assessment & Plan (1) S/P spinal surgery: This is an 85-year-old female with PMH of hypertension, rheumatoid arthritis, paroxysmal atrial fibrillation on anticoagulation who is s/p L4-S1 decompression and fusion by Dr. Shin on this admission -s/p L4-S1 decompression and fusion by Dr. Shin -post-operative blood counts appear stable, oral potassium given on 05/02/2020 05/02/2020: Patient seen and examined while sitting in the chair. She reports today she is feeling some low back pain but she is not in acute distress and have requested as needed acetaminophen or as needed tramadol when there is back pain flare. She reports when she ambulates, her blood pressure is somewhat higher than at rest. She reports she did well with therapy. She reports bowel movements since her surgery. no chest pain. no abdomen pain. no shortness of breath. she is breathing on room air. (2) Atrial fibrillation: Paroxysmal Atrial Fibrillation -Continue metoprolol -Xarelto has been held since 04/26/20 -patient should be able to resume Xarelto for stroke risk reduction from atrial fibrillation as long as orthopedic service are okay from bleed risks post- operatively. her post-operative EKG with sinus bradycardia. appears to be currently sinus bradycardia. (3) HTN (hypertension): -Continue home metoprolol 12.5mg daily (4) Rheumatoid arthritis: -Methotrexate held for 2 weeks preoperatively. Follow-up with PCP for instructions to resume as outpatient DVT prophylaxis: SCDs Admission and Anticipated Discharge Date Admission Date: April 29, 2020 Subjective Patient seen and examined while sitting in the chair. She reports today she is feeling some low back pain but she is not in acute distress and have requested as needed acetaminophen or as needed tramadol when there is back pain flare. She reports when she ambulates, her blood pressure is somewhat higher than at rest. She reports she did well with therapy. She reports bowel movements since her surgery. no chest pain. no abdomen pain. no shortness of breath. she is breathing on room air. Review of Systems Review of Systems: All systems reviewed & are unremarkable except as noted in Subjective Physical Exam Constitutional: comfortable Eyes: PERRL, conjunctivae normal, anicteric sclerae EOM intact bilaterally ENMT: external ear and nose normal, oropharynx normal Neck: trachea midline, no thyromegaly normal visual inspection Respiratory: normal respiratory effort, lungs clear to auscultation Cardiovascular: Rate/Rhythm: + bradycardic Gastrointestinal (Abdomen): normal bowel sounds, soft, nontender, no hepatosplenomegaly Musculoskeletal: Head/Neck/Chest: normocephalic and head atraumatic Neurologic: PERRL, EOMI, accommodation nl, no face palsy, no dysarthria Psychiatric: A+Ox3, euthymic affect Results & Data Results & Data ([facility]) Vital Signs (Past 12 Hours) Vital Signs Temp Pulse Resp BP BP Pulse Ox 05/02/20 07:06 36.9 C 52 L 17 166/89 H 97 05/01/20 23:21 36.5 C 60 18 165/79 H 99
[2020-05-02] MEDS: FOLIC ACID 1 MG TAB PO SCH (08:42)
[2020-05-02] MEDS: CALCIUM 600MG + VIT D 400 IU TAB PO SCH ×2 (08:42→20:29)
[2020-05-02] MEDS: MULTIVITAMIN TAB PO SCH (08:42)
[2020-05-02] MEDS: LIFITEGRAST OP SCH ×2 (08:43→20:29)
[2020-05-02] MEDS: METOPROLOL SUCC 25MG EXT REL TAB PO SCH (08:43)
[2020-05-02] MEDS: predniSONE 10 MG TABLET PO SCH (08:43)
[2020-05-02] MEDS: DEXAMETHASONE SOD PHOSPHATE 6 MG in SYRINGE 0 ML IV SCH (08:48)
--- NOTE | 2020-05-02 13:17 | Orthopedic Progress Note ---
Date of Service May 02, 2020 Assessment & Plan (1) Neurogenic claudication due to lumbar spinal stenosis: This time the patient is improving appropriately. JOANNA drain is decreasing nicely. We anticipate discharge home with home health tomorrow. Present on Admission?: Yes Admission and Anticipated Discharge Date Admission Date: April 29, 2020 Subjective Back pain controlled leg symptoms improving Physical Exam Physical Exam: Patient is in the chair at the bedside is good strength testing. Results & Data ([facility]) Vital Signs (Past 12 Hours) Vital Signs Temp Pulse Pulse Resp BP BP Pulse Ox 05/02/20 12:31 97 05/02/20 08:35 70 131/49 L 05/02/20 07:06 36.9 C 52 L 17 166/89 H 97
[2020-05-02] MEDS: CHOLECALCIFEROL 1,000 UNITS 25 MCG TAB PO SCH (20:29)
[2020-05-02] MEDS: DOCUSATE SODIUM/SENNA 50/8.6MG TAB PO SCH (20:29)
--- NOTE | 2020-05-03 07:48 | Hospitalist Progress Note ---
Date of Service May 03, 2020 Assessment & Plan (1) S/P spinal surgery: This is an 85-year-old female with PMH of hypertension, rheumatoid arthritis, paroxysmal atrial fibrillation on anticoagulation who is s/p L4-S1 decompression and fusion by Dr. Shin on this admission -s/p L4-S1 decompression and fusion by Dr. Shin -post-operative blood counts appear stable, oral potassium given on 05/02/2020 05/02/2020: Patient seen and examined while sitting in the chair. She reports today she is feeling some low back pain but she is not in acute distress and have requested as needed acetaminophen or as needed tramadol when there is back pain flare. She reports when she ambulates, her blood pressure is somewhat higher than at rest. She reports she did well with therapy. She reports bowel movements since her surgery. no chest pain. no abdomen pain. no shortness of breath. she is breathing on room air. 05/03/2020: patient feeling well and she expects orthopedic service to discharge her to home today. denies acute back pain. breathing comfortably on room air. no dizziness. no chest pain. no abdomen pain. no vomiting (2) Atrial fibrillation: Paroxysmal Atrial Fibrillation -Continue metoprolol -Xarelto has been held since 04/26/20 -patient should be able to resume Xarelto for stroke risk reduction from atrial fibrillation as long as orthopedic service are okay from bleed risks post- operatively. her post-operative EKG with sinus bradycardia. appears to be currently sinus bradycardia. -since orthopedic planning to discharge patient on 05/03/2020, hospitalist have set xarelto 15 mg qPM to be resumed (3) HTN (hypertension): -Continue home metoprolol 12.5mg daily (4) Rheumatoid arthritis: -Methotrexate held for 2 weeks preoperatively. Follow-up with PCP for instructions to resume as outpatient DVT prophylaxis: SCDs Admission and Anticipated Discharge Date Admission Date: April 29, 2020 Subjective patient feeling well and she expects orthopedic service to discharge her to home today. denies acute back pain. breathing comfortably on room air. no dizziness. no chest pain. no abdomen pain. no vomiting Review of Systems Review of Systems: All systems reviewed & are unremarkable except as noted in Subjective Physical Exam Constitutional: comfortable Eyes: PERRL, conjunctivae normal, anicteric sclerae EOM intact bilaterally ENMT: external ear and nose normal, oropharynx normal Neck: trachea midline, no thyromegaly normal visual inspection Respiratory: normal respiratory effort, lungs clear to auscultation Cardiovascular: Rate/Rhythm: + bradycardic Gastrointestinal (Abdomen): normal bowel sounds, soft, nontender, no hepatosplenomegaly Musculoskeletal: Head/Neck/Chest: normocephalic and head atraumatic Neurologic: PERRL, EOMI, accommodation nl, no face palsy, no dysarthria Psychiatric: A+Ox3, euthymic affect Results & Data Results & Data ([facility]) Vital Signs (Past 12 Hours) Vital Signs Temp Pulse Resp BP Pulse Ox 05/02/20 23:21 36.6 C 74 18 152/60 H 91
[2020-05-03] MEDS: CALCIUM 600MG + VIT D 400 IU TAB PO SCH (08:37)
[2020-05-03] MEDS: DEXAMETHASONE SOD PHOSPHATE 6 MG in SYRINGE 0 ML IV SCH (08:38)
[2020-05-03] MEDS: FOLIC ACID 1 MG TAB PO SCH (08:38)
[2020-05-03] MEDS: predniSONE 10 MG TABLET PO SCH (08:39)
[2020-05-03] MEDS: LIFITEGRAST OP SCH (08:39)
[2020-05-03] MEDS: METOPROLOL SUCC 25MG EXT REL TAB PO SCH (08:39)
[2020-05-03] MEDS: MULTIVITAMIN TAB PO SCH (08:39)
[2020-05-03] MEDS: ACETAMINOPHEN 500 MG TAB PO PRN (08:41)
[2020-05-03] MEDS: TRAMADOL HCL 50 MG TABLET PO PRN (10:39)
--- NOTE | 2020-05-03 10:59 | Discharge Summary ---
Date of Service May 03, 2020 Admission HPI Per Admitting Provider This is an 85-year-old female who presents with worsening back and bilateral leg pain. After failing course of nonoperative care is here for surgical invention. Principal Diagnosis Lumbar spinal stenosis with neurogenic claudication Discharge Data Allergies Allergy/AdvReac Type Severity Reaction Status Date / Time cevimeline AdvReac Unknown vision Verified 04/29/20 10:01 affected fentanyl AdvReac Unknown severe Verified 04/29/20 10:01 nausea loratadine AdvReac Unknown Headache Verified 04/29/20 10:01 NSAIDS (Non-Steroidal AdvReac Unknown n/v Verified 04/29/20 10:01 Anti-Inflamma oxycodone [From OxyContin] AdvReac Vomiting Verified 04/29/20 10:01 pregabalin [From Lyrica] AdvReac Dizziness Verified 04/29/20 10:01 Consultations 04/29/20 15:31 Consult Case Management - Discharge Planning Routine Consult Hospitalist Routine Procedures Performed Operation Date: 01/31/20 07:45 <No data on this case meets the specified criteria> Operation Date: 04/29/20 11:05 Actual Procedures p L4-S1 Decompression and Fusion, Spinal Cord Monitoring(Not Applicable) - Nick Shin DO Ordered Studies 04/29/20 11:05 FL fluoroscopy <1hr Routine FL lumbar spine 2-3V Routine Hospital Course (1) Neurogenic claudication due to lumbar spinal stenosis: Patient went lumbar decompression fusion tolerated this well was taken to orthopedic for postoperative. Postop day 1 she progressed with therapy progressed to postop day #2 and 3 JOANNA drain decreasing probably. Pain well controlled. Excellent strength testing. JOANNA drain decreasing nicely. Subsequent discharge home. Discharge orders instructions from the chart for further review. Total Time Total Time Spent Total Time Spent (In Minutes): 20 minutes Discharge Plan Discharge Items Patient Disposition: Home - Home Health Services Reason For Visit: Spinal Stenosis, Lumbar Region with Neurogenic Cla Discharge Diagnosis: Lumbar spinal stenosis with neurogenic claudication Activity: As commented below Non-emergency contact: Primary Care Provider Call non-emergency contact if: you have any medication questions Follow-up/Referrals: Radha Driver M.D. [Primary Care Provider] - Diet: Regular Addtl Attending Provider Instructions: ACTIVITY RECOMMENDATIONS: SELF CARE INSTRUCTIONS AFTER THORACIC/LUMBAR FUSIONS 1. You may walk to your tolerance. It is good exercise for your legs and back. Expect some back and intermittent leg aches and pains. 2. You may perform "counter-top" level activities (make a sandwich, arnaud with a project, etc.). 3. No bending or lifting of more than 10 pounds or back twisting of any nature (roll like a log when turning in bed). 4. You may ride in a car for 20-30 minutes at a time. No driving until after your first visit with your doctor. 5. Frequent changes of position and restricting sitting to 30 minutes at a time will help limit the amount of back spasms and stiffness you may experience. 6. You may discontinue the use of ambulatory aids (cane, crutches, etc.) once your strength and confidence allow. 7. You may diesel maintenance technician the shower and let water strike your incision when you arrive home at least once daily. Do not take a tub bath, sit in a hot tub or go into a swimming pool until after your first recheck in the office. SPECIAL CARE INSTRUCTIONS: VERY IMPORTANT TO READ AND REVIEW A. Your surgical incision has been closed with a cosmetic suture under the skin that will dissolve in about 6 weeks. In 14 days, you can use a pair of clean scissors and cut the suture that is left outside of the skin at the ends of your incision. 1. The small skin tapes can be removed 7 days after surgery if they have not fallen off by that point. 2. You may keep the wound open to air as much as possible to promote healing after post-op day number 5 unless told otherwise by your doctor. 3. If you think the wound looks like it is becoming infected (redness or worsening drainage) and/or you are experiencing fever, chill or worsening back pain and muscle spasms, contact the office so that we may evaluate you as soon as possible. B. Complications are uncommon, but please contact us if you have any signs or symptoms of: 1. wound infection (fever higher than 102.5 degrees F, redness, separation of wound, drainage, or increasing pain from the incision) 2. blood clots in legs (pain, swelling, redness and warmth in legs) 3. urinary tract infection (fever higher than 102.5 degrees F, burning upon urination or increased frequency of urination) 4. nerve problems (inability to walk on your toes or heels, numbness, loss of bowel or bladder control) 5. any other symptoms that concern you C. Please call the office at if you have any concerns or questions about your operation or recovery. D. No smoking! Smoking drastically decreases the chance of a solid fusion. E. Do not take any anti-inflammatory medications (Indocin, Advil, Motrin, Aspirin, Naprosyn, etc.) as these may inhibit the chance of a solid fusion. Tylenol is okay to take for pain. MANAGING PAIN AFTER SPINAL SURGERY 1. Narcotic medication is intended for short-term use and will be provided for surgical pain. Surgical pain usually lasts for a period of 4-6 weeks. Narcotic medication includes Percocet, Vicodin, Darvocet, Tylenol #3 or Lortab. 2. Longer-term pain is more appropriately treated with non-narcotic medication such as Tylenol ES. 3. Muscle spasm is not appropriately treated with narcotics. Muscle relaxers such as Soma, Flexeril or Skelaxin can be used along with Tylenol ES. 4. Remember that we all live with some "aches and pains". This is not unusual or uncommon after an injury or as we get older. a. Back pain is expected and may include muscle spasms for 4 to 6 weeks after surgery. The pain should gradually improve. If the pain worsens for no apparent reason, please contact the office. b. Intermittent leg pain may also be experienced and should not be concerned about unless it worsens for no apparent reason. If so, please contact the office. 5. We will provide appropriate medication within the normal guidelines of their prescribed use. We will also be very cautious and aware of potential abuse and extended duration of patients' medication needs. a. Pain medications are for your comfort and to assist with sleep and rest so that the tissue can heal. They are not provided in order to return to normal activity and should not be used through the day. To do so or worsening pain at night can result from ongoing tissue damage and development of tolerance to the prescribed medicine. 6. Please allow 2-3 days to process refills. Prescriptions will not be mailed but must be picked up at the office. FOLLOW UP VISIT: Keep your scheduled follow-up appointment. Any questions, please call the office at . Pending Studies at Discharge: No Stand-Alone Forms: My [facility] [employer], Opioid Pain Management, Smoking Cessation Medications and DC Order Prescriptions: New tramadol 50 mg tablet 50 mg PO Q6H PRN (Reason: pain, moderate) Qty: 30 RF: 0 Continued folic acid 1 mg Tablet 1 mg PO QAM RF: 0 metoprolol succinate 25 mg Tablet Extended Release 24 Hr 12.5 mg PO QAM RF: 0 Calcium 600 + D(3) 600 mg calcium- 200 unit Capsule 1 cap PO BID RF: 0 cholecalciferol (vitamin D3) [Vitamin D3] 25 mcg (1,000 unit) Tablet,Chewable 25 mcg PO PM RF: 0 Centrum Silver Women 8 mg iron-400 mcg-300 mcg Tablet 1 tab PO QAM RF: 0 Xarelto 15 mg Tablet 15 mg PO PM RF: 0 lutein 40 mg Capsule 40 mg PO PM RF: 0 Osteo Bi-Flex Triple Strength 750 mg-644 mg- 30 mg-1 mg Tablet 1 tab PO PM RF: 0 Fish Oil 900 mg-360 mg- 455 mg-1,000 mg Capsule 2 cap PO BID RF: 0 acetaminophen [Acetaminophen Extra Strength] 500 mg Tablet 500 mg PO TID RF: 0 lifitegrast 5 % Dropperette 1 drp OPHTHALMIC (EYE) BID RF: 0 Discontinued methotrexate sodium 2.5 mg Tablet 12.5 mg PO WK RF: 0 Discharge Orders: Discharge Order (Routine); Ordered 05/03/20 Ordered By: Nick Guzman/Other Patient Handouts: DVT Post Op Prevention Admission Data Admit Date/Time: 04/29/20 14:04 Attending Provider: Nick Shin Admit Provider: Nick Shin Primary Care Provider: Radha Driver Other Providers: Silvestre Escamilla ; Chau Mckenzie ; [facility] Other Interventions: Discharge Summary Assessment (RN) Last Done: 05/03/20 09:58
[2020-05-03] MEDS ORDERED: RIVAROXABAN 15 MG TAB PO SCH (16:30)
== END 2020-05-03 11:13 | disposition home health service (06) | DRG 460 ==
LOC: ASU 09:07 → 3E 14:04

== ENCOUNTER 2020-05-20 10:56 | Inpatient (IN) ==
[2020-05-20] MEDS ORDERED: LORazepam 1 MG TAB PO PRN (15:33)
[2020-05-20] MEDS ORDERED: ONDANSETRON INJ 2 MG/ML 2 ML VIAL IV PRN (15:33)
[2020-05-20] MEDS ORDERED: PROMETHAZINE HCL 12.5 MG in SODIUM CHLORIDE 0.9% 50 ML IV PRN (15:33)
[2020-05-20] MEDS ORDERED: LORazepam 1 MG/2 ML VIAL IV PRN (15:33)
[2020-05-20] MEDS ORDERED: ONDANSETRON 4 MG OD TAB PO PRN (15:33)
[2020-05-20] MEDS ORDERED: METOCLOPRAMIDE HCL INJ 5 MG/ML 2 ML VIAL IV PRN (15:33)
--- NOTE | 2020-05-20 15:33 | History & Physical Report ---
Date of Service May 20, 2020 Assessment & Plan (1) Sacral fracture: This time we reviewed her x-rays. I am concerned she has an S1-S2 sacral fracture. I would like to obtain an MRI of the lumbar spine to thoroughly assess this region as well as rule out seroma hematoma contributing to neural compression. Make further conditions after this complete. In the meantime we will maintain bedrest. Present on Admission?: Yes History of Present Illness Chief Complaint: Back and left leg pain Primary Care Provider: Radha Driver This is a 85-year-old female who presents with marked decline in status over the past week. She had been doing wonderfully postoperatively but began experiencing lumbosacral back pain radiating into left buttock and now down the left leg. Is incapacitating nature. She is unable to ambulate. She only responds to IV narcotics for any pain control. The right lower extremity does not appear to be affected. Allergies Allergy/AdvReac Type Severity Reaction Status Date / Time cevimeline AdvReac Unknown vision Verified 04/29/20 10:01 affected fentanyl AdvReac Unknown severe Verified 04/29/20 10:01 nausea loratadine AdvReac Unknown Headache Verified 04/29/20 10:01 NSAIDS (Non-Steroidal AdvReac Unknown n/v Verified 04/29/20 10:01 Anti-Inflamma oxycodone [From OxyContin] AdvReac Vomiting Verified 04/29/20 10:01 pregabalin [From Lyrica] AdvReac Dizziness Verified 04/29/20 10:01 Home Medications Home Medications Medication Instructions Recorded Confirmed Type Calcium 600 + D(3) 1 cap PO BID 04/09/20 05/20/20 History Centrum Silver Women 1 tab PO QAM 04/09/20 05/20/20 History Fish Oil 2 cap PO BID 04/09/20 05/20/20 History Osteo Bi-Flex Triple Strength 1 tab PO PM 04/09/20 05/20/20 History Xarelto 15 mg PO PM 04/09/20 05/20/20 History cholecalciferol (vitamin D3) 25 mcg PO PM 04/09/20 05/20/20 History [Vitamin D3] folic acid 1 mg PO QAM 04/09/20 05/20/20 History lifitegrast 1 drp OPHTHALMIC (EYE) BID 04/09/20 05/20/20 History lutein 40 mg PO PM 04/09/20 05/20/20 History metoprolol succinate 12.5 mg PO QAM 04/09/20 05/20/20 History tramadol 50 mg PO Q6H PRN #30 tab 04/30/20 05/20/20 Rx cyclobenzaprine 10 mg PO TID 05/20/20 05/20/20 History docusate sodium 100 mg PO BID 05/20/20 05/20/20 History methotrexate sodium 2.5 mg PO WK 05/20/20 05/20/20 History methylprednisolone 4 mg PO DAILY 05/20/20 05/20/20 History Past Med/Surg History Medical History (Updated 05/20/20 @ 15:33 by Nick Shin DO) Atrial fibrillation CAD (coronary artery disease) mild, non-obstructive per 2017 cardiac cath Choking Hx of choking on a pill 01/2017. Patient's did heimlich maneuver. Patient then found to have elevated enzymes. Had cardiac cath with mild, non- obstructive CAD. 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 History of breast biopsy left History of cataract surgery bilat History of colonoscopy History of esophagogastroduodenoscopy (EGD) History of hysterectomy History of tonsillectomy History of tooth extraction History of total hip arthroplasty left Vaginal prolapse with repair Social History Smoking Status: Never smoker Second Hand Exposure: No; Hx Alcohol Use: No Hx Substance Use: No Preferred Language: Uzbek Communication Ability: Effective Hydroponics Worker Required: No Beliefs That Will Affect Care: None marital status: Current Living Situation: Spouse Feels Safe at Home: Yes Physical Exam Physical Exam: On exam she is nervous distress. She has difficulty rolling over. She does have reasonable plantar flexion dorsiflexion quadriceps to testing bilateral squeeze. There is decreased sensation to left lower extremity compared to the right. Results & Data Vital Signs (Past 12 Hours) Vital Signs Temp Pulse Resp BP Pulse Ox 05/20/20 15:11 36.7 C 72 14 124/69 94 05/20/20 14:20 36.7 C 87 18 162/75 H 97
--- NOTE | 2020-05-20 16:09 | Internal Medicine Consult Note ---
Date of Consultation May 20, 2020 Assessment & Plan (1) Neurogenic claudication due to lumbar spinal stenosis: (2) S/P spinal surgery: -This is a patient who on 04/29/2020 had L4-S1 Decompression and Fusion because of Lumbar spinal stenosis with neurogenic claudication and was operated on by orthopedics Dr. Shin at [facility] and then discharged from [facility] on 05/03/2020. Patient then placed on observation at [facility] because of back pain radiating down the left leg. Patient was then transferred to [facility] to be under the care of Dr. Shin and arrived on 05/20/2020. Dr. Shin has ordered MRI of the lumbar spine without contrast and also X ray of the left hip. In addition he requested hospitalist consult for "Medical Management." -Patient reports that at [facility] she has received tramadol and m orphine without acute reactions. She is not in acute distress at the bedside. Her left leg raise is difficult for her to do. She reports feeling numbness running down the left leg. She reports that the back pain is controlled when she is not changing body positions. She denies problems with urination or with bowel movements -prn pain medications, scheduled cyclobenzaprine (3) PAF (paroxysmal atrial fibrillation): -On hospitalist discussion with patient, she reports that she was continued her home dose Xarelto (which is 15 mg qPM) for Paroxysmal Atrial Fibrillation when she was at [facility] so presumed last dose from 05/19/2020. She commented that she though could have been out of rhythm at some point when she was at [facility]. On exam by hospitalist, she appears to be regular rhythm. Hospitalist will order EKG. In the meanwhile will plan to hold off the home dose Xarelto for now in case any further orthopedic procedures are needed on this hospital stay at [facility] -DVT prophylaxis with heparin 5000 units subcutaneous every 8 hours for now -continue home dose metoprolol succinate 12.5 mg daily Hypertension -metoprolol succinate 12.5 mg daily (4) Rheumatoid arthritis: -holding home dose weekly methotrexate at this time -methylprednisolone on home med rec is not for rheumatoid arthritis and patient not currently taking (5) Macular degeneration: with Sjogren's disease -patient takes xiidra eye drops which her daughter brought for her and patient to take this medication after verification with pharmacy Daughter Cat [phone]; [phone] Radha Driver, Family medicine in in [place], [place] [phone] History of Present Illness Reason for Consultation: "MEDICAL MANAGEMENT" Requesting Physician: Dr. Nick Shin History of Present Illness This is a patient who on 04/29/2020 had L4-S1 Decompression and Fusion because of Lumbar spinal stenosis with neurogenic claudication and was operated on by orthopedics Dr. Shin at [facility] and then discharged from [facility] on 05/03/2020. Patient then placed on observation at [facility] because of back pain radiating down the left leg. Patient was then transferred to [facility] to be under the care of Dr. Shin and arrived on 05/20/2020. Dr. Shin has ordered MRI of the lumbar spine without contrast and also X ray of the left hip. In addition he requested hospitalist consult for "Medical Management." On hospitalist discussion with patient, she reports that she was continued her home dose Xarelto (which is 15 mg qPM) for Paroxysmal Atrial Fibrillation when she was at [facility] so presumed last dose from 05/19/2020. She commented that she though could have been out of rhythm at some point when she was at [facility]. On exam by hospitalist, she appears to be regular rhythm. Hospitalist will order EKG. In the meanwhile will plan to hold off the home dose Xarelto for now in case any further orthopedic procedures are needed on this hospital stay at [facility] DVT prophylaxis with heparin 5000 units subcutaneous every 8 hours for now Patient reports that at [facility] she has received tramadol and morphine without acute reactions. She is not in acute distress at the bedside. Her left leg raise is difficult for her to do. She reports feeling numbness running down the left leg. She reports that the back pain is controlled when she is not changing body positions. She denies problems with urination or with bowel movements No other symptoms on review of systems. no chest pain. no abdomen pain. no vomiting. no dizziness. no headache. Family History: patient denies any family history of major medical problems Allergies Allergy/AdvReac Type Severity Reaction Status Date / Time cevimeline AdvReac Unknown vision Verified 04/29/20 10:01 affected fentanyl AdvReac Unknown severe Verified 04/29/20 10:01 nausea loratadine AdvReac Unknown Headache Verified 04/29/20 10:01 NSAIDS (Non-Steroidal AdvReac Unknown n/v Verified 04/29/20 10:01 Anti-Inflamma oxycodone [From OxyContin] AdvReac Vomiting Verified 04/29/20 10:01 pregabalin [From Lyrica] AdvReac Dizziness Verified 04/29/20 10:01 Home Medications Home Medications Medication Instructions Recorded Confirmed Type Calcium 600 + D(3) 1 cap PO BID 04/09/20 05/20/20 History Centrum Silver Women 1 tab PO QAM 04/09/20 05/20/20 History Fish Oil 2 cap PO BID 04/09/20 05/20/20 History Osteo Bi-Flex Triple Strength 1 tab PO PM 04/09/20 05/20/20 History Xarelto 15 mg PO PM 04/09/20 05/20/20 History cholecalciferol (vitamin D3) 25 mcg PO PM 04/09/20 05/20/20 History [Vitamin D3] folic acid 1 mg PO QAM 04/09/20 05/20/20 History lifitegrast 1 drp OPHTHALMIC (EYE) BID 04/09/20 05/20/20 History lutein 40 mg PO PM 04/09/20 05/20/20 History metoprolol succinate 12.5 mg PO QAM 04/09/20 05/20/20 History tramadol 50 mg PO Q6H PRN #30 tab 04/30/20 05/20/20 Rx cyclobenzaprine 10 mg PO TID 05/20/20 05/20/20 History docusate sodium 100 mg PO BID 05/20/20 05/20/20 History methotrexate sodium 2.5 mg PO WK 05/20/20 05/20/20 History methylprednisolone 4 mg PO DAILY 05/20/20 05/20/20 History Patient History Medical History (Updated 05/20/20 @ 16:44 by Chau Mckenzie MD) Atrial fibrillation CAD (coronary artery disease) mild, non-obstructive per 2017 cardiac cath Choking Hx of choking on a pill 01/2017. Patient's did heimlich maneuver. Patient then found to have elevated enzymes. Had cardiac cath with mild, non- obstructive CAD. 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 History of breast biopsy left History of cataract surgery bilat History of colonoscopy History of esophagogastroduodenoscopy (EGD) History of hysterectomy History of tonsillectomy History of tooth extraction History of total hip arthroplasty left Vaginal prolapse with repair Social History Smoking Status: Never smoker Second Hand Exposure: No; Hx Alcohol Use: No Hx Substance Use: No Preferred Language: Swedish Communication Ability: Effective Local Area Network Administrator Required: No Beliefs That Will Affect Care: None marital status: Current Living Situation: Spouse Feels Safe at Home: Yes Review of Systems Review of Systems: All systems reviewed & are unremarkable except as noted in HPI & below Physical Exam Constitutional: cooperative Eyes: PERRL, conjunctivae normal, anicteric sclerae EOM intact bilaterally Neck: trachea midline, no thyromegaly normal visual inspection Respiratory: normal respiratory effort, lungs clear to auscultation Cardiovascular: Rate/Rhythm: regular rate and regular rhythm Gastrointestinal (Abdomen): normal bowel sounds, soft, nontender, no hepatosplenomegaly Musculoskeletal: Head/Neck/Chest: normocephalic and head atraumatic Neurologic: PERRL, EOMI, accommodation nl, no face palsy, no dysarthria moves all extremities weakness of left leg raise Psychiatric: A+Ox3, euthymic affect Results & Data Vital Signs (Past 12 Hours) Vital Signs Temp Pulse Resp BP Pulse Ox 05/20/20 15:11 36.7 C 72 14 124/69 94 05/20/20 14:20 36.7 C 87 18 162/75 H 97
[2020-05-20 16:21] LABS: Basophils # (auto) 0.01 K/uL (0-0.2); Basophils % (auto) 0.2 %; Eosinophils # (auto) 0.12 K/uL (0-0.5); Eosinophils % (auto) 2.8 %; Hematocrit (blood only) 31.2 % (37-47); Hemoglobin 10.4 g/dL (12.0-16.0); Immature Granulocytes # (auto) 0.01 K/uL (0.00-0.02); Immature Granulocytes % (auto) 0.2 %; Lymphocytes # (auto) 0.97 K/uL (1.2-3.4); Lymphocytes % (auto) 22.5 %; Mean Corpuscular Hemoglobin 33.9 pg (25-34); Mean Corpuscular Hgb Conc 33.3 g/dL (32-36); Mean Corpuscular Volume 101.6 fL (80-100); Mean Platelet Volume 8.5 fL (7.4-10.4); Monocytes # (auto) 0.33 K/uL (0.11-0.59); Monocytes % (auto) 7.6 %; Neutrophils # (auto) 2.88 K/uL (1.4-6.5); Neutrophils % (auto) 66.7 %; Platelet Count 486 K/uL (130-400); RDW Coefficient of Variation 14.7 % (11.5-14.5); RDW Standard Deviation 53.8 fL (36.4-46.3); Red Blood Count 3.07 M/uL (4.2-5.4); White Blood Count 4.32 K/uL (4.8-10.8)
[2020-05-20 16:46] LABS: Albumin Level 2.1 gm/dl (3.4-5.0); BUN Creatinine Ratio 25.5 (10-20); Calcium 8.1 mg/dl (8.5-10.1); Creatinine Clr Calc Pharmacy 102.1 ml/min; Est GFR (African American) 115.3; Est GFR (Non-African American) 99.5
[2020-05-20 16:48] LABS: Albumin Globulin Ratio 0.5 (0.9-2); Bilirubin,Total 0.3 mg/dl (0.2-1); Globulin 4.2 gm/dl (2.5-4.0); Total Protein 6.3 gm/dl (6.4-8.2)
--- NOTE | 2020-05-20 17:16 | XRay Report ---
XR hip LT 2V w pelvis CLINICAL HISTORY: Left hip pain COMPARISON: 09/29/2017 DISCUSSION: There are postsurgical changes present within the lower lumbar spine. There are postsurgi trace changes of a total left hip arthroplasty. There is no dislocation. There are no acute fractures. IMPRESSION: Postsurgical changes. No acute fractures identified. ACT 112: Negative or not required by law. Electronically signed by: Maynor Bowie M.D. 05/20/2020 5:15 PM
[2020-05-20] MEDS: LACTATED RINGER'S 1,000 ML IV SCH (17:26)
[2020-05-20] MEDS: HYDROmorphone INJ 0.5 MG/0.5 ML SYR IV PRN (17:26)
[2020-05-20] MEDS: TRAMADOL HCL 50 MG TABLET PO PRN (18:27)
--- NOTE | 2020-05-20 20:04 | Magnetic Resonance Report ---
MR lumbar spine wo con CLINICAL HISTORY: Back and leg pain possible sacral fracture TECHNIQUE: Sagittal and axial T1, T2 and STIR images were obtained. COMPARISON STUDY: Lumbar spine x-ray dated 04/29/2020 OBSERVATIONS: There is S1 marrow edema, likely secondary to a fracture. L1-2: There is a mild circumferential disc bulge. There is no significant spinal or foraminal stenosi s. L2-3: There is a circumferential disc bulge. There is mild spinal stenosis. There is mild bilateral f oraminal narrowing. L3-4: There is a circumferential disc bulge. There is mild spinal stenosis. There is moderate to cassidy re right-sided foraminal narrowing L4-5: There are postsurgical changes of a L5 laminectomy. There is mild triangular spinal stenosis ju st superior to the laminectomy site. There is a circumferential disc bulge. There are L4 and L5 pedic le screws. L5-S1: There are postsurgical changes of a laminectomy. There are L5 and S1 pedicle screws. There is no significant spinal stenosis. There are postsurgical changes within the posterior soft tissues at the L5 level consistent with hist ory of recent surgery The conus medullaris and cauda equina appear normal. There is moderate distention of the urinary bladder. IMPRESSION: 1. Evidence of an L4-S1 spinal decompression and fusion with postoperative changes within the posteri or soft tissues 2. Multilevel spondylytic changes with mild spinal stenosis the L2-3, L3-4, and L4-5 levels. There is moderate to severe right-sided foraminal narrowing at the L3-4 level. 3. S1 marrow edema, likely secondary to an acute/subacute fracture. 4. Distended urinary bladder ACT 112: Negative or not required by law. Electronically signed by: Maynor Bowie M.D. 05/20/2020 8:03 PM
[2020-05-20] MEDS ORDERED: DOCUSATE SODIUM 100 MG CAP PO SCH (21:00)
[2020-05-20] MEDS: CYCLOBENZAPRINE HCL 10 MG TAB PO SCH (21:13)
[2020-05-20] MEDS: XIIDRA OP SCH (21:14)
[2020-05-20] MEDS: HEPARIN SOD 5,000 UNIT/0.5 ML VIAL SQ SCH (21:15)
[2020-05-20] MEDS: DOCUSATE SODIUM 100 MG CAP PO SCH (21:17)
[2020-05-20] MEDS: ACETAMINOPHEN 500 MG TAB PO PRN (21:17)
[2020-05-20] MEDS: HYDROmorphone INJ 1 MG/ML SYRINGE IV PRN (22:34)
[2020-05-21 06:07] LABS: Basophils # (auto) 0.01 K/uL (0-0.2); Basophils % (auto) 0.2 %; Eosinophils # (auto) 0.29 K/uL (0-0.5); Eosinophils % (auto) 6.1 %; Hematocrit (blood only) 31.3 % (37-47); Hemoglobin 10.3 g/dL (12.0-16.0); Immature Granulocytes # (auto) 0.01 K/uL (0.00-0.02); Immature Granulocytes % (auto) 0.2 %; Lymphocytes # (auto) 2.09 K/uL (1.2-3.4); Lymphocytes % (auto) 44.2 %; Mean Corpuscular Hemoglobin 33.8 pg (25-34); Mean Corpuscular Hgb Conc 32.9 g/dL (32-36); Mean Corpuscular Volume 102.6 fL (80-100); Mean Platelet Volume 8.5 fL (7.4-10.4); Monocytes # (auto) 0.47 K/uL (0.11-0.59); Monocytes % (auto) 9.9 %; Neutrophils # (auto) 1.86 K/uL (1.4-6.5); Neutrophils % (auto) 39.4 %; Platelet Count 471 K/uL (130-400); RDW Coefficient of Variation 14.6 % (11.5-14.5); RDW Standard Deviation 54.5 fL (36.4-46.3); Red Blood Count 3.05 M/uL (4.2-5.4); White Blood Count 4.73 K/uL (4.8-10.8)
[2020-05-21 06:47] LABS: Albumin Level 1.9 gm/dl (3.4-5.0); BUN Creatinine Ratio 28.6 (10-20); Calcium 7.4 mg/dl (8.5-10.1); Creatinine Clr Calc Pharmacy 99.2 ml/min; Est GFR (African American) 114.2; Est GFR (Non-African American) 98.5; Potassium 3.8 mmol/L (3.5-5.1)
[2020-05-21 06:49] LABS: Albumin Globulin Ratio 0.5 (0.9-2); Bilirubin,Total 0.4 mg/dl (0.2-1); Total Protein 5.9 gm/dl (6.4-8.2)
[2020-05-21] MEDS: HEPARIN SOD 5,000 UNIT/0.5 ML VIAL SQ SCH (07:31)
[2020-05-21] MEDS: XIIDRA OP SCH ×2 (07:31→20:11)
[2020-05-21] MEDS: METOPROLOL SUCC 25MG EXT REL TAB PO SCH (07:32)
[2020-05-21] MEDS: DOCUSATE SODIUM 100 MG CAP PO SCH ×2 (07:32→20:10)
[2020-05-21] MEDS: CYCLOBENZAPRINE HCL 10 MG TAB PO SCH ×3 (07:32→20:10)
[2020-05-21] MEDS: TRAMADOL HCL 50 MG TABLET PO PRN ×4 (07:33→22:36)
--- NOTE | 2020-05-21 07:48 | Hospitalist Progress Note ---
Date of Service May 21, 2020 Assessment & Plan (1) Neurogenic claudication due to lumbar spinal stenosis: (2) S/P spinal surgery: (3) Sacral fracture: -05/20/2020: This is a patient who on 04/29/2020 had L4-S1 Decompression and Fusion because of Lumbar spinal stenosis with neurogenic claudication and was operated on by orthopedics Dr. Shin at [facility] and then discharged from [facility] on 05/03/2020. Patient then placed on observation at [facility] because of back pain radiating down the left leg. Patient was then transferred to [facility] to be under the care of Dr. Shin and arrived on 05/20/2020. Dr. Shin has ordered MRI of the lumbar spine without contrast and also X ray of the left hip. In addition he requested hospitalist consult for "Medical Management." -Patient reports that at [facility] she has received tramadol and morphine without acute reactions. She is not in acute distress at the bedside. Her left leg raise is difficult for her to do. She reports feeling numbness running down the left leg. She reports that the back pain is controlled when she is not changing body positions. She denies problems with urination or with bowel movements -prn pain medications, scheduled cyclobenzaprine -Left Hip/Pelvis X ray 05/20/2020: "There are postsurgical changes present within the lower lumbar spine. There are postsurgical changes of a total left hip arthroplasty. There is no dislocation. There are no acute fractures. IMPRESSION: Postsurgical changes. No acute fractures identified" MRI "1. Evidence of an L4-S1 spinal decompression and fusion with postoperative changes within the posterior soft tissues 2. Multilevel spondylytic changes with mild spinal stenosis the L2-3, L3-4, and L4-5 levels. There is moderate to severe right-sided foraminal narrowing at the L3-4 level. 3. S1 marrow edema, likely secondary to an acute/subacute fracture." 4. Distended urinary bladder -05/21/2020: Patient reports that overnight she was able to get some sleep. This AM, she is NPO as she is awaiting orthopedic evaluation. The EKG from 05/20/2020 is poor quality but appears to be in sinus rhythm and patient with no chest pain, no palpitations, no shortness of breath, and continues to be on room air. Patient agrees for repeat EKG on 05/21/2020. Patient reports that she feels hip pain that goes across both sides and runs down the left leg. As per nurse, the night time doctor discontinued the heparin subcutaneous and Xarelto remains held. awaiting for orthopedics whether any need for surgery today. currently NPO (4) PAF (paroxysmal atrial fibrillation): -05/20/2020: On hospitalist discussion with patient, she reports that she was continued her home dose Xarelto (which is 15 mg qPM) for Paroxysmal Atrial Fibrillation when she was at [facility] so presumed last dose from 05/19/2020. She commented that she though could have been out of rhythm at some point when she was at [place]. On exam by hospitalist, she appears to be regular rhythm. Hospitalist will order EKG. In the meanwhile will plan to hold off the home dose Xarelto for now in case any further orthopedic procedures are needed on this hospital stay at [facility] -continue home dose metoprolol succinate 12.5 mg daily -05/21/2020: management as above Hypertension -metoprolol succinate 12.5 mg daily (5) Rheumatoid arthritis: -holding home dose weekly methotrexate at this time -methylprednisolone on home med rec is not for rheumatoid arthritis and patient not currently taking (6) Macular degeneration: with Sjogren's disease -patient takes xiidra eye drops which her daughter brought for patient Code status: Full Code (Patient has Living Will in the chart, however those instructions are valid as per patient and daughter if there is protracted artificial ventilation. They affirmed that in event of cardiac-respiratory arrest or signs of impending cardiac arrest, that they will still want medical team to perform CPR or defibrillate or intubate) Damaris Shelton [phone]; [phone] Radha Driver, Family medicine in in [place], [place] [phone] My colleague with [facility] hospitalist group Dr. Anand will take over as the consult hospitalist starting on 05/22/2020 Admission and Anticipated Discharge Date Admission Date: May 20, 2020 Subjective Patient reports that overnight she was able to get some sleep. This AM, she is NPO as she is awaiting orthopedic evaluation. The EKG from 05/20/2020 is poor quality but appears to be in sinus rhythm and patient with no chest pain, no palpitations, no shortness of breath, and continues to be on room air. Patient agrees for repeat EKG on 05/21/2020. Patient reports that she feels hip pain that goes across both sides and runs down the left leg. As per nurse, the night time doctor discontinued the heparin subcutaneous and Xarelto remains held. awaiting for orthopedics whether any need for surgery today. Review of Systems Review of Systems: All systems reviewed & are unremarkable except as noted in Subjective Physical Exam Constitutional: cooperative Eyes: PERRL, conjunctivae normal, anicteric sclerae EOM intact bilaterally ENMT: external ear and nose normal, oropharynx normal Neck: trachea midline, no thyromegaly normal visual inspection Respiratory: normal respiratory effort, lungs clear to auscultation Cardiovascular: Rate/Rhythm: regular rate and regular rhythm Gastrointestinal (Abdomen): normal bowel sounds, soft, nontender, no hepatosplenomegaly Musculoskeletal: Head/Neck/Chest: normocephalic and head atraumatic able to move all extremities Neurologic: PERRL, EOMI, accommodation nl, no face palsy, no dysarthria moves all extremities Psychiatric: A+Ox3, euthymic affect Results & Data Results & Data ([facility]) Vital Signs (Past 12 Hours) Vital Signs Temp Pulse Resp BP Pulse Ox 05/21/20 07:35 92 05/21/20 07:32 36.8 C 95 H 18 135/69 78 L 05/21/20 07:27 36.9 C 87 14 151/73 H 95 05/20/20 23:07 36.7 C 88 16 154/73 H 93
--- NOTE | 2020-05-21 08:28 | Orthopedic Progress Note ---
Date of Service May 21, 2020 Assessment & Plan (1) Sacral fracture: MRI has confirmed S1 and sacral fracture. Subsequently we are planning for I&D of lumbar spine to evacuate seroma and extension of the lumbar fusion into the pelvis to span the S1 fracture and hopefully help with her pain and subsequently begin mobilization. Patient understands and agrees. Risk benefits pros cons and alternatives were outlined in detail. She will be n.p.o. after midnight. Present on Admission?: Yes Admission and Anticipated Discharge Date Admission Date: May 20, 2020 Subjective Patient continues to have lumbosacral back pain with radiation into the left lower extremity. Physical Exam Physical Exam: Patient is comfortable while supine. Is reasonable strength testing lower extremities. Results & Data ([facility]) Vital Signs (Past 12 Hours) Vital Signs Temp Pulse Resp BP Pulse Ox 05/21/20 07:35 92 05/21/20 07:32 36.8 C 95 H 18 135/69 78 L 05/21/20 07:27 36.9 C 87 14 151/73 H 95 05/20/20 23:07 36.7 C 88 16 154/73 H 93
[2020-05-21] MEDS ORDERED: ENOXAPARIN INJ 40 MG/0.4 ML SYR SQ ONE (09:15)
[2020-05-21] MEDS: HYDROmorphone INJ 0.5 MG/0.5 ML SYR IV PRN ×3 (10:09→15:50)
[2020-05-21] MEDS: ACETAMINOPHEN 500 MG TAB PO PRN ×2 (12:38→20:10)
--- NOTE | 2020-05-21 16:31 | Anesthesiology Consultation ---
Date of Service May 21, 2020 Assessment & Plan Chart Review Chart Review: Acceptable Risk for Surgery and Patient NOT seen in Pre Admission Testing Consults Requested none ASA ASA4 Proposed Anesthesia Anesthesia Type: General Anesthesia Line Insertion: Arterial line History Surgery Operation Date: 05/22/20 12:55 Proposed Procedures p Lumbosacral Fusion with Iliac Bolts, Spinal Cord Monitoring - Nick Shin, Height/Weight Height: 5 ft 2 in Weight: 61 kg Allergies Allergy/AdvReac Type Severity Reaction Status Date / Time cevimeline AdvReac Unknown vision Verified 04/29/20 10:01 affected fentanyl AdvReac Unknown severe Verified 04/29/20 10:01 nausea loratadine AdvReac Unknown Headache Verified 04/29/20 10:01 NSAIDS (Non-Steroidal AdvReac Unknown n/v Verified 04/29/20 10:01 Anti-Inflamma oxycodone [From OxyContin] AdvReac Vomiting Verified 04/29/20 10:01 pregabalin [From Lyrica] AdvReac Dizziness Verified 04/29/20 10:01 Medications Home Medications Medication Instructions Recorded Confirmed Last Taken Calcium 600 + D(3) 1 cap PO BID 04/09/20 05/20/20 04/27/20 Centrum Silver Women 1 tab PO QAM 04/09/20 05/20/20 04/27/20 Fish Oil 2 cap PO BID 04/09/20 05/20/20 04/16/20 Osteo Bi-Flex Triple Strength 1 tab PO PM 04/09/20 05/20/20 04/16/20 Xarelto 15 mg PO PM 04/09/20 05/20/20 04/26/20 cholecalciferol (vitamin D3) 25 mcg PO PM 04/09/20 05/20/20 04/26/20 [Vitamin D3] folic acid 1 mg PO QAM 04/09/20 05/20/20 04/27/20 lifitegrast 1 drp OPHTHALMIC (EYE) BID 04/09/20 05/20/20 04/29/20 07:00 lutein 40 mg PO PM 04/09/20 05/20/20 04/16/20 metoprolol succinate 12.5 mg PO QAM 04/09/20 05/20/20 04/29/20 07:00 tramadol 50 mg PO Q6H PRN #30 tab 04/30/20 05/20/20 Unknown cyclobenzaprine 10 mg PO TID 05/20/20 05/20/20 05/20/20 09:00 docusate sodium 100 mg PO BID 05/20/20 05/20/20 05/20/20 methotrexate sodium 2.5 mg PO WK 05/20/20 05/20/20 Unknown methylprednisolone 4 mg PO DAILY 05/20/20 05/20/20 Unknown Active Medications Generic Name Dose Route Start Last Admin Trade Name Fre PRN Reason Stop Dose Admin Acetaminophen 1,000 mg 05/20/20 15:33 05/21/20 12:38 Tylenol PO 06/19/20 15:32 1,000 mg Q8H PRN Administration MILD Pain Rating 1,2,3 Cyclobenzaprine HCl 10 mg 05/20/20 21:00 05/21/20 13:50 Flexeril PO 06/19/20 20:59 10 mg TID SUSHMA Administration Docusate Sodium 100 mg 05/20/20 21:00 05/21/20 07:32 Colace PO 06/19/20 20:59 100 mg BID SUSHMA Administration Hydromorphone HCl 0.5 mg 05/20/20 15:33 05/21/20 15:50 Dilaudid IV 06/03/20 15:32 0.5 mg Q3H PRN Administration moderate pain (scale 4-6) Hydromorphone HCl 1 mg 05/20/20 15:33 05/20/20 22:34 Dilaudid IV 06/03/20 15:32 1 mg Q3H PRN Administration severe pain (scale 7-10) Lactated Ringer's 1,000 mls @ 15 mls/hr 05/20/20 15:45 05/20/20 17:26 Lr IV 06/19/20 15:44 15 mls/hr .Q24H SUSHMA Administration Metoprolol Succinate 12.5 mg 05/21/20 09:00 05/21/20 07:32 Toprol Xl PO 06/20/20 08:59 12.5 mg QAM SUSHMA Administration Xiidra - Patient's 1 ea 05/20/20 21:00 05/21/20 07:31 Own Med OP 06/19/20 20:59 1 drops BID SUSHMA Administration Tramadol HCl 50 - 100 mg 05/20/20 15:33 05/21/20 13:50 Ultram PO 06/19/20 15:32 100 mg Q4H PRN Administration Moderate-Severe Pain Past Medical History Medical History Atrial fibrillation CAD (coronary artery disease) mild, non-obstructive per 2016 cardiac cath Choking Hx of choking on a pill 01/2017. Patient's did heimlich maneuver. Patient then found to have elevated enzymes. Had cardiac cath with mild, non- obstructive CAD. 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 History of breast biopsy left History of cataract surgery bilat History of colonoscopy History of esophagogastroduodenoscopy (EGD) History of hysterectomy History of tonsillectomy History of tooth extraction History of total hip arthroplasty left Vaginal prolapse with repair Past Anesthesia History No Hx of Anesthesia Complications and No Family Hx of Anesthesia Complications History of PONV No Hx of PONV and No Hx of Motion Sickness Social History Smoking Status: Never smoker Hx Alcohol Use: No Hx Substance Use: No substance use type: does not use Physical Exam Vital Signs Last Vital Signs Temp 36.8 C 05/21/20 15:40 Pulse 71 05/21/20 15:40 Resp 17 05/21/20 15:40 BP 132/63 05/21/20 15:40 Pulse Ox 96 05/21/20 15:40 Testing Laboratory Results 05/21/20 05:56 05/21/20 05:56 Electrocardiogram Date: 05/21/20 Findings: + NSR @ (at 89;LAE;LAD;T wave abnl)
[2020-05-21] MEDS: HYDROmorphone INJ 1 MG/ML SYRINGE IV PRN (20:39)
[2020-05-22] MEDS: LACTATED RINGER'S 1,000 ML IV SCH ×2 (08:15→17:33)
[2020-05-22] MEDS: TRAMADOL HCL 50 MG TABLET PO PRN ×2 (08:27→21:22)
[2020-05-22] MEDS: DOCUSATE SODIUM 100 MG CAP PO SCH ×2 (08:28→20:13)
[2020-05-22] MEDS: METOPROLOL SUCC 25MG EXT REL TAB PO SCH (08:28)
[2020-05-22] MEDS: CYCLOBENZAPRINE HCL 10 MG TAB PO SCH ×3 (08:28→20:13)
[2020-05-22] MEDS: XIIDRA OP SCH ×2 (08:29→20:13)
[2020-05-22] MEDS ORDERED: PROPOFOL IV EMULSION 10 MG/ML 20 ML VIAL IV ONE (11:20)
[2020-05-22] MEDS ORDERED: DEXAMETHASONE SOD INJ 4 MG/ML VIAL ONE (11:20)
[2020-05-22] MEDS ORDERED: ONDANSETRON INJ 2 MG/ML 2 ML VIAL ONE (11:20)
[2020-05-22] MEDS ORDERED: fentaNYL citrate 100 MCG/2 ML VIAL ONE ×2 (11:20→15:53)
[2020-05-22] MEDS ORDERED: ROCURONIUM BROMIDE 10 MG/ML 5 ML VIAL IV ONE (11:20)
[2020-05-22] MEDS ORDERED: LIDOCAINE HCL 2% 2 ML VIAL/AMP(20MG/ML) INFIL ONE (11:20)
--- NOTE | 2020-05-22 13:29 | History & Physical Bridge Note ---
Date of Service May 22, 2020 History & Physical Bridge Note I have examined the patient, reviewed the History & Physical and in the interval since the performance of the History & Physical I have noted the following changes of clinical significance: no changes noted
[2020-05-22] MEDS ORDERED: BACITRACIN INJ 50,000 UNIT VIAL ONE (14:05)
[2020-05-22] MEDS ORDERED: BUPIVACAINE/EPINEPHRINE 0.25% 1:200,000 30 ML VIAL ONE (14:05)
[2020-05-22] MEDS ORDERED: HYDROmorphone INJ 1 MG/ML SYRINGE IV PRN (14:10)
[2020-05-22] MEDS ORDERED: ePHEDrine sulfate 50 MG/ML AMP IV PRN (14:10)
[2020-05-22] MEDS ORDERED: fentaNYL citrate 100 MCG/2 ML VIAL IV PRN (14:10)
[2020-05-22] MEDS ORDERED: ATROPINE SULFATE 0.1 MG/ML 10ML SYR IV PRN (14:10)
[2020-05-22] MEDS ORDERED: ONDANSETRON INJ 2 MG/ML 2 ML VIAL IV PRN ×2 (14:10→17:07)
[2020-05-22] MEDS ORDERED: CEFAZOLIN 250 MG/ML 1 GM VIAL ONE (14:50)
[2020-05-22] MEDS ORDERED: GENTAMICIN SULFATE 40 MG/ML 2 ML VIAL ONE (14:57)
[2020-05-22] MEDS ORDERED: VANCOMYCIN HCL 1000MG/20ML VIAL ONE (14:57)
[2020-05-22] MEDS ORDERED: FLOSEAL HEMOSTATIC MATRIX 10ML TOP ONE (15:15)
--- NOTE | 2020-05-22 15:42 | Hospitalist Progress Note ---
Date of Service May 22, 2020 Assessment & Plan (1) Neurogenic claudication due to lumbar spinal stenosis: (2) S/P spinal surgery: (3) Sacral fracture: - for Surgery today- I&D of seroma, extension of lumbar fusion - no medical contraindication to proceed with surgery will continue to monitor closely post-operatively (4) PAF (paroxysmal atrial fibrillation): - stable -continue home dose metoprolol succinate 12.5 mg daily hold Xarelto, resume once hemostasis controlled per [facility] Hypertension -metoprolol succinate 12.5 mg daily (5) Rheumatoid arthritis: per Dr. Chau Mckenzie's notes: -holding home dose weekly methotrexate at this time -methylprednisolone on home med rec is not for rheumatoid arthritis and patient not currently taking (6) Macular degeneration: with Sjogren's disease -continue xiidra eye drops Admission and Anticipated Discharge Date Admission Date: May 20, 2020 Subjective ff up for Sacral Fracture seen resting in bed, comfortable, not in distress states back pain is moderate, relieved by analgesics denies headache, chest pain, palpitations, dizziness no other symptoms Review of Systems Review of Systems: All systems reviewed & are unremarkable except as noted in HPI & below Physical Exam Physical Exam: General- oriented x 3, not in distress, speaks in sentences with no effort or accessory muscle use Eyes- anicteric Neck- no JVD Lungs- clear breath sounds bilaterally, no rales/wheezes Heart- normal rate, regular rhythm; no murmurs Abdomen- normal bowel sounds, nondistended, soft, nontender Extremities- no pretibial edema, no calf tenderness Neuro- alert, oriented x 3; no gross focal neurologic deficits Skin- warm & dry Results & Data Results & Data ([facility]) Vital Signs (Past 12 Hours) Vital Signs Temp Pulse Resp BP Pulse Ox 05/22/20 12:16 36.8 C 86 20 154/72 H 94 Laboratory Results Laboratory Results - last 24 hr 05/21/20 15:54 Blood Type O Negative Antibody Screen NEGATIVE
--- NOTE | 2020-05-22 15:43 | Fluoroscopy Report ---
INTRAOPERATIVE RADIOGRAPHS CLINICAL HISTORY: Lumbar fusion with iliac bolts. Fluoroscopy time: 17 seconds. FINDINGS: 2 spot fluoroscopic views of the lower lumbar spine are presented. Fusion hardware is noted at the lumbosacral junction with bilateral iliac bolts in place. The orthopedic hardware appears int act. IMPRESSION: Intraoperative radiographs from lumbar spine fusion surgery as above. See operative repor t for detailed findings. Electronically signed by: Lion Zarate M.D. 05/22/2020 3:42 PM
--- NOTE | 2020-05-22 15:48 | Operative Report ---
Post Operative Report Pre & Post Diagnosis Operation Date: 05/22/20 12:55 Pre-Op Diagnosis: Sacral Fracture Post-Op Diagnosis: Sacral Fracture I identified the patient and participated in the time-out.: Yes Procedure Operation Date: 05/22/20 12:55 Actual Procedures #1 irrigation debridement of epidural seroma. #2 revision foraminotomies L5-S1. #3 bilateral open SI joint fusions. #4 placement of bilateral iliac bolts. #5 placement infuse collagen sponge combined with master graft in the bilateral SI joints. Surgeon Nick Shin, Dynamo Repairer Hien Gallardo Estimated Blood Loss 75 Findings Consistent with Post-Op Diagnosis Specimens None Indications This is an 85-year-old female presents with above-mentioned diagnosis after having continued radiculopathy and back pain we elected to go the above- mentioned procedure. Description of Procedure Patient was met with identified informed consent obtained. Patient was then taken to the operative suite underwent an patient placed in a prone position the Moshe table on top Josiah frame. All bony prominences well-padded eyes inspected to ensure no external pressure placed upon them. This point the lumbar spine was prepped and draped in a sterile fashion. Sharp dissection with assistance of Bovie cautery was performed down to and exposing the epidural space. A large hematoma seroma was identified and evacuated. I then performed a revision foraminotomies L5-S1 the left. And then opened the bilateral SI joints posteriorly and burred them out to subcortical bleeding bone. I then placed bilateral iliac bolts. I removed the previous diane inserted new rods attaching them to iliac bolts and into the previous instrumentation at L4-L5 and S1 bilaterally. A cross-link was also locked into position. Proximally 5 cc of stimulant beads impregnated with vancomycin gentamicin placed throughout the wound. 15 round JOANNA drain inserted. Incision was then closed with 1 Vicryl the fascia 2-0 Vicryl subcutaneously and 4 Monocryl for final skin closure. Steri- Strip sterile dressings placed. Patient will continue to PACU stable condition. Please note Hien Gallardo was present at the entire procedure involved the patient positioning complex portions of the surgery and final skin closure. I attest to the content of the Intraoperative Record and any orders documented therein. Any exceptions are noted below.
[2020-05-22] MEDS ORDERED: GLYCOPYRROLATE 0.2 MG/ML VIAL ONE (15:53)
[2020-05-22] MEDS ORDERED: NEOSTIGMINE METHYLSULFATE 1 MG/ML 10ML VIAL ONE (15:53)
--- NOTE | 2020-05-22 16:33 | Anesthesiology Progress Note ---
Date of Service May 22, 2020 Anesthesia Post Procedure Vital Signs Vital Signs: Temp Pulse Pulse Resp BP Pulse Ox 05/22/20 16:25 81 22 140/64 100 05/22/20 16:15 78 13 146/58 H 100 05/22/20 16:06 37.2 C 96 H 19 101/61 100 05/22/20 12:16 36.8 C 86 20 154/72 H 94 05/21/20 23:02 36.4 C L 79 16 145/75 H 96 Pain Intensity Back: Pain Intensity: 2 Transfer of Care Handoff Completed per policy Notes Mental Status: alert / awake / arousable Patient Amnestic to Procedure: Yes Nausea / Vomiting: adequately controlled Pain: adequately controlled Airway Patency, RR, SpO2: stable & adequate BP & HR: stable & adequate Hydration State: stable & adequate Anesthetic Complications: no major complications apparent and Pt Satisfied with anesthetic care Notes: The patient is awake and comfortable. Her vital signs are stable.
[2020-05-22] MEDS ORDERED: LORazepam 0.5 MG/1 ML VIAL IV PRN (17:07)
[2020-05-22] MEDS ORDERED: SOD PHOSPHATE/SOD BIPHOSPHATE ENEMA 132 ML BTL PR PRN (17:07)
[2020-05-22] MEDS ORDERED: LORazepam 0.5 MG TAB PO PRN (17:07)
[2020-05-22] MEDS ORDERED: ONDANSETRON 4 MG OD TAB PO PRN (17:07)
[2020-05-22] MEDS ORDERED: ACETAMINOPHEN 1,000 MG/100 ML VIAL IV PRN (17:07)
[2020-05-22] MEDS ORDERED: MAGNESIUM HYDROXIDE SUSP 30 ML UDC PO PRN (17:07)
[2020-05-22] MEDS ORDERED: PROMETHAZINE HCL 12.5 MG in SODIUM CHLORIDE 0.9% 50 ML IV PRN (17:07)
[2020-05-22] MEDS ORDERED: ALUMINUM/MAGNESIUM SUSP 30 ML UDC PO PRN (17:07)
[2020-05-22] MEDS ORDERED: TRAMADOL HCL 50 MG TABLET PO PRN (17:07)
[2020-05-22] MEDS ORDERED: ACETAMINOPHEN 500 MG TAB PO PRN (17:07)
[2020-05-22] MEDS ORDERED: NALOXONE HCL 0.4 MG/1 ML VIAL/CARP IV PRN (17:07)
[2020-05-22] MEDS ORDERED: SODIUM CHLORIDE 0.9% 1000ML 1,000 ML IV SCH (17:07)
[2020-05-22] MEDS ORDERED: METOCLOPRAMIDE HCL INJ 5 MG/ML 2 ML VIAL IV PRN (17:07)
[2020-05-22] MEDS ORDERED: bisacodyL 10 MG SUPP PR PRN (17:07)
[2020-05-22] MEDS ORDERED: DO NOT ADMINISTER FLU VACCINE PRN (17:07)
[2020-05-22] MEDS ORDERED: FAMOTIDINE 20 MG TAB PO PRN (17:07)
[2020-05-22] MEDS ORDERED: DO NOT ADMINISTER PNEUMOCOCCAL VACCINE PRN (17:07)
[2020-05-22] MEDS ORDERED: HYDROmorphone INJ 0.5 MG/0.5 ML SYR IV PRN (17:07)
[2020-05-22] MEDS: HYDROmorphone INJ 1 MG/ML SYRINGE IV PRN (17:18)
[2020-05-22] MEDS: ACETAMINOPHEN 500 MG TAB PO PRN (19:15)
[2020-05-22] MEDS: DOCUSATE SODIUM/SENNA 50/8.6MG TAB PO SCH (20:13)
[2020-05-22] MEDS: CEFAZOLIN 1000MG 1,000 MG/7.5 ML SYR IV SCH (21:01)
--- NOTE | 2020-05-22 23:24 | Electrocardiogram Report ---
Test Reason : Blood Pressure : / mmHG Vent. Rate : 084 BPM Atrial Rate : 084 BPM P-R Int : 182 ms QRS Dur : 084 ms QT Int : 368 ms P-R-T Axes : 080 -15 155 degrees QTc Int : 434 ms Poor data quality, interpretation may be adversely affected Sinus rhythm with Premature atrial complexes Minimal voltage criteria for LVH, may be normal variant Abnormal ECG When compared with ECG of 01-MAY-2020 09:01, ST now depressed in Anterolateral leads T wave inversion now evident in Anterolateral leads Premature atrial complexes are now Present Confirmed by Jam Maldonado ([id number]) on 05/22/2020 11:23:59 PM Referred By: Nick Shin Confirmed By:Jam Maldonado
[2020-05-22] MEDS ORDERED: COUGH DROP (SUGAR FREE) LOZ 24 LOZ/1 BOX BUCCAL ONE (23:43)
--- NOTE | 2020-05-22 23:49 | Electrocardiogram Report ---
Test Reason : Blood Pressure : / mmHG Vent. Rate : 093 BPM Atrial Rate : 093 BPM P-R Int : 200 ms QRS Dur : 092 ms QT Int : 360 ms P-R-T Axes : 041 -31 176 degrees QTc Int : 447 ms Normal sinus rhythm Possible Left atrial enlargement Left axis deviation T wave abnormality, consider lateral ischemia Abnormal ECG When compared with ECG of 20-May-2020 18:15, Premature atrial complexes are no longer Present T wave inversion less evident in Anterolateral leads Confirmed by Jam Maldonado ([id number]) on 05/22/2020 11:48:56 PM Referred By: Nick Shin Confirmed By:Jam Maldonado
[2020-05-23] MEDS: TRAMADOL HCL 50 MG TABLET PO PRN ×4 (02:10→23:55)
[2020-05-23] MEDS: HYDROmorphone INJ 1 MG/ML SYRINGE IV PRN ×2 (04:46→17:38)
[2020-05-23] MEDS: CEFAZOLIN 1000MG 1,000 MG/7.5 ML SYR IV SCH (04:46)
[2020-05-23] MEDS: POLYETHYLENE (MIRALAX) 17 GM PACK PO SCH ×4 (04:46→23:50)
[2020-05-23 06:21] LABS: Eosinophils # (auto) 0.03 K/uL (0-0.5); Eosinophils % (auto) 0.6 %; Hematocrit (blood only) 28.2 % (37-47); Hemoglobin 9.4 g/dL (12.0-16.0); Immature Granulocytes # (auto) 0.02 K/uL (0.00-0.02); Immature Granulocytes % (auto) 0.4 %; Lymphocytes # (auto) 1.28 K/uL (1.2-3.4); Lymphocytes % (auto) 23.7 %; Mean Corpuscular Hemoglobin 34.1 pg (25-34); Mean Corpuscular Hgb Conc 33.3 g/dL (32-36); Mean Corpuscular Volume 102.2 fL (80-100); Mean Platelet Volume 9.1 fL (7.4-10.4); Monocytes # (auto) 0.53 K/uL (0.11-0.59); Monocytes % (auto) 9.8 %; Neutrophils # (auto) 3.54 K/uL (1.4-6.5); Neutrophils % (auto) 65.5 %; Platelet Count 375 K/uL (130-400); RDW Coefficient of Variation 14.6 % (11.5-14.5); RDW Standard Deviation 53.9 fL (36.4-46.3); Red Blood Count 2.76 M/uL (4.2-5.4)
[2020-05-23 06:50] LABS: BUN Creatinine Ratio 20.3 (10-20); Calcium 8.3 mg/dl (8.5-10.1); Creatinine Clr Calc Pharmacy 73.9 ml/min; Est GFR (African American) 103.7; Est GFR (Non-African American) 89.4; Potassium 4.2 mmol/L (3.5-5.1)
[2020-05-23] MEDS: DOCUSATE SODIUM 100 MG CAP PO SCH ×2 (09:39→20:15)
[2020-05-23] MEDS: CYCLOBENZAPRINE HCL 10 MG TAB PO SCH ×3 (09:39→20:15)
[2020-05-23] MEDS: METOPROLOL SUCC 25MG EXT REL TAB PO SCH (09:40)
[2020-05-23] MEDS: XIIDRA OP SCH ×2 (09:41→20:14)
--- NOTE | 2020-05-23 10:32 | Orthopedic Progress Note ---
Date of Service May 23, 2020 Assessment & Plan (1) Sacral fracture: Admission and Anticipated Discharge Date Admission Date: May 20, 2020 At this time we will attempt a bed to chair transfers hopefully she will tolerate this. We will follow her throughout the next few days and begin ambulation if tolerated. Subjective Patient's back and leg symptoms are markedly improved. Physical Exam Physical Exam: On exam she is good strength testing is simple to bed and appears comfortable. Results & Data ([facility]) Vital Signs (Past 12 Hours) Vital Signs Temp Pulse Resp BP Pulse Ox 05/23/20 07:51 36.3 C L 71 16 118/67 96 05/23/20 03:13 36.7 C 77 15 119/64 94 05/22/20 23:53 37.1 C 81 14 118/70 94
--- NOTE | 2020-05-23 18:38 | Hospitalist Progress Note ---
Date of Service May 23, 2020 Assessment & Plan (1) Neurogenic claudication due to lumbar spinal stenosis: (2) S/P spinal surgery: (3) Sacral fracture: -s/p I&D of seroma, extension of lumbar fusion - remains stable overall monitor Hg encouraged oral fluid intake, use of incentive spirometry every 30 mins at least - will continue to monitor closely (4) PAF (paroxysmal atrial fibrillation): - stable - continue home dose Metoprolol succinate 12.5 mg daily hold Xarelto, resume once hemostasis controlled per Dr. Shin Hypertension -metoprolol succinate 12.5 mg daily (5) Rheumatoid arthritis: per Dr. Chau Mckenzie's notes: -holding home dose weekly methotrexate at this time -methylprednisolone on home med rec is not for rheumatoid arthritis and patient not currently taking (6) Macular degeneration: with Sjogren's disease -continue xiidra eye drops Thank you for this consultation. We will follow the patient with you during their hospital stay. You can reach a member of the [facility] Hospitalist Team 03/05 via pager @ [phone]. Admission and Anticipated Discharge Date Admission Date: May 20, 2020 Subjective ff up for post op back surgery seen sitting up in bed, comfortable not in distress states she feels better today back pain much better denies chest pain, dyspnea, headache, dizziness, palpitations no abdominal pain, nausea/vomiting, chills no other symptoms Review of Systems Review of Systems: All systems reviewed & are unremarkable except as noted in HPI & below Physical Exam Physical Exam: General- oriented x 3, not in distress, speaks in sentences with no effort or accessory muscle use Eyes- anicteric Neck- no JVD Lungs-mild crackles on the left base, clear on the left Heart- normal rate, regular rhythm; no murmurs Abdomen- normal bowel sounds, nondistended, soft, nontender Back- dressing in place, no bleeding or discharge drain in place- draining serosanguinous output Extremities- no pretibial edema, no calf tenderness Neuro- alert, oriented x 3; no gross focal neurologic deficits Skin- warm & dry Results & Data Results & Data ([facility]) Vital Signs (Past 12 Hours) Vital Signs Temp Pulse Resp BP Pulse Ox 05/23/20 15:39 36.7 C 78 16 124/70 97 05/23/20 07:51 36.3 C L 71 16 118/67 96
[2020-05-23] MEDS: DOCUSATE SODIUM/SENNA 50/8.6MG TAB PO SCH (20:14)
[2020-05-24] MEDS: TRAMADOL HCL 50 MG TABLET PO PRN ×4 (05:26→23:31)
[2020-05-24] MEDS: POLYETHYLENE (MIRALAX) 17 GM PACK PO SCH ×4 (05:26→23:31)
[2020-05-24] MEDS: METOPROLOL SUCC 25MG EXT REL TAB PO SCH (09:05)
[2020-05-24] MEDS: DOCUSATE SODIUM 100 MG CAP PO SCH ×2 (09:06→21:26)
[2020-05-24] MEDS: CYCLOBENZAPRINE HCL 10 MG TAB PO SCH ×3 (09:06→21:26)
[2020-05-24] MEDS: XIIDRA OP SCH ×2 (09:09→21:30)
[2020-05-24 10:16] LABS: Basophils # (auto) 0.01 K/uL (0-0.2); Basophils % (auto) 0.1 %; Eosinophils # (auto) 0.19 K/uL (0-0.5); Eosinophils % (auto) 2.7 %; Hematocrit (blood only) 29.9 % (37-47); Immature Granulocytes # (auto) 0.02 K/uL (0.00-0.02); Immature Granulocytes % (auto) 0.3 %; Lymphocytes # (auto) 1.48 K/uL (1.2-3.4); Lymphocytes % (auto) 21.2 %; Mean Corpuscular Hemoglobin 33.8 pg (25-34); Mean Corpuscular Hgb Conc 33.4 g/dL (32-36); Monocytes # (auto) 0.62 K/uL (0.11-0.59); Monocytes % (auto) 8.9 %; Neutrophils # (auto) 4.67 K/uL (1.4-6.5); Neutrophils % (auto) 66.8 %; Platelet Count 292 K/uL (130-400); RDW Coefficient of Variation 14.3 % (11.5-14.5); RDW Standard Deviation 52.7 fL (36.4-46.3); Red Blood Count 2.96 M/uL (4.2-5.4); White Blood Count 6.99 K/uL (4.8-10.8)
[2020-05-24 10:36] LABS: Calcium 8.5 mg/dl (8.5-10.1); Est GFR (African American) 97.9; Est GFR (Non-African American) 84.4; Potassium 4.2 mmol/L (3.5-5.1)
--- NOTE | 2020-05-24 12:45 | Orthopedic Progress Note ---
Date of Service May 24, 2020 Assessment & Plan (1) Neurogenic claudication due to lumbar spinal stenosis: Admission and Anticipated Discharge Date Admission Date: May 20, 2020 This time we will continue bed to chair transfers. She may walk in the room wit h a walker. Plan for half-way Wednesday or Wednesday. Subjective Back and leg symptoms markedly improved. She is tolerating sitting in a chair. Physical Exam Physical Exam: Patient is good strength testing appears comfortable. Results & Data ([facility]) Vital Signs (Past 12 Hours) Vital Signs Temp Pulse Resp BP Pulse Ox 05/24/20 07:20 37.4 C 87 16 129/70 92
--- NOTE | 2020-05-24 18:18 | Hospitalist Progress Note ---
Date of Service May 24, 2020 Assessment & Plan (1) Neurogenic claudication due to lumbar spinal stenosis: (2) S/P spinal surgery: -This is a patient who on 04/29/2020 had L4-S1 Decompression and Fusion because of Lumbar spinal stenosis with neurogenic claudication and was operated on by orthopedics Dr. Shin at [facility] and then discharged from [facility] on 05/03/2020. Patient then placed on observation at [facility] because of back pain radiating down the left leg. Patient was then transferred to [facility] to be under the care of Dr. Shin and arrived on 05/20/2020. Dr. Shin has ordered MRI of the lumbar spine without contrast and also X ray of the left hip. In addition he requested hospitalist consult for "Medical Management." -Patient reports that at [facility] she has received tramadol and morph ine without acute reactions. She is not in acute distress at the bedside. Her left leg raise is difficult for her to do. She reports feeling numbness running down the left leg. She reports that the back pain is controlled when she is not changing body positions. She denies problems with urination or with bowel movements -prn pain medications, scheduled cyclobenzaprine (3) Sacral fracture: -s/p I&D of seroma, extension of lumbar fusion -Continues to remain stable Globin stable at 10 encouraged oral fluid intake, use of incentive spirometry every 30 mins at least -Continue to monitor closely -Continue bowel regimen (4) PAF (paroxysmal atrial fibrillation): - stable - continue home dose Metoprolol succinate 12.5 mg daily hold Xarelto, resume once hemostasis controlled per Dr. Shin Hypertension -metoprolol succinate 12.5 mg daily (5) Rheumatoid arthritis: per Dr. Chau Mckenzie's notes: -holding home dose weekly methotrexate at this time -methylprednisolone on home med rec is not for rheumatoid arthritis and patient not currently taking (6) Macular degeneration: with Sjogren's disease -continue xiidra eye drops Thank you for this consultation. We will follow the patient with you during their hospital stay. You can reach a member of the [facility] Hospitalist Team 03/05 via pager @ [phone]. Admission and Anticipated Discharge Date Admission Date: May 20, 2020 Subjective This post back surgery, I&D of seroma Resting at bedside chair, just walked back to the bathroom Not in distress, but does report significant back pain after walking Denies chest pain, shortness of breath, palpitations, dizziness No abdominal pain, no nausea vomiting No BMs x2 days Denies other symptoms Review of Systems Review of Systems: All systems reviewed & are unremarkable except as noted in HPI & below Physical Exam Physical Exam: General- oriented x 3, not in distress, speaks in sentences with no effort or accessory muscle use Eyes- anicteric Neck- no JVD Lungs- clear BS bilaterally, no crackles or wheezing Heart- normal rate, regular rhythm; no murmurs Abdomen- normal bowel sounds, nondistended, soft, nontender Back-dressing in place, no bleeding or discharge; JOANNA drain in place with serosanguineous output Extremities- no pretibial edema, no calf tenderness Neuro- alert, oriented x 3; no gross focal neurologic deficits Skin- warm & dry Results & Data Results & Data ([facility]) Vital Signs (Past 12 Hours) Vital Signs Temp Pulse Resp BP Pulse Ox 05/24/20 14:45 36.5 C 87 16 110/62 92 05/24/20 07:20 37.4 C 87 16 129/70 92
[2020-05-24] MEDS: NON-FORMULARY PATIENT'S OWN MED PO SCH (21:26)
[2020-05-24] MEDS: DOCUSATE SODIUM/SENNA 50/8.6MG TAB PO SCH (21:30)
[2020-05-25 06:41] LABS: BUN Creatinine Ratio 17.2 (10-20); Calcium 7.8 mg/dl (8.5-10.1); Creatinine Clr Calc Pharmacy 84.7 ml/min; Est GFR (African American) 108.4; Est GFR (Non-African American) 93.5; Potassium 4.4 mmol/L (3.5-5.1)
[2020-05-25] MEDS: DOCUSATE SODIUM 100 MG CAP PO SCH ×2 (08:18→20:12)
[2020-05-25] MEDS: CYCLOBENZAPRINE HCL 10 MG TAB PO SCH ×3 (08:18→20:13)
[2020-05-25] MEDS: METOPROLOL SUCC 25MG EXT REL TAB PO SCH (08:18)
[2020-05-25] MEDS: XIIDRA OP SCH ×2 (08:20→20:14)
[2020-05-25] MEDS: NON-FORMULARY PATIENT'S OWN MED PO SCH ×2 (08:21→20:13)
[2020-05-25] MEDS: TRAMADOL HCL 50 MG TABLET PO PRN ×3 (08:24→17:43)
--- NOTE | 2020-05-25 10:04 | Orthopedic Progress Note ---
Date of Service May 25, 2020 Assessment & Plan (1) Sacral fracture: Admission and Anticipated Discharge Date Admission Date: May 20, 2020 This time we will continue bed to chair transfers. I asked that she not sit for prolonged periods of time. She may walk a few steps. We will plan for senior care placement Wednesday. Subjective Patient's back pain is controlled no leg pain. Physical Exam Physical Exam: On exam she is in a chair at the bedside. Is good strength testing. Results & Data ([facility]) Vital Signs (Past 12 Hours) Vital Signs Temp Pulse Resp BP Pulse Ox 05/25/20 07:42 37.3 C 82 18 151/74 H 95 05/24/20 22:59 37.6 C H 83 18 135/74 97
--- NOTE | 2020-05-25 18:41 | Hospitalist Progress Note ---
Date of Service May 25, 2020 Assessment & Plan (1) Neurogenic claudication due to lumbar spinal stenosis: (2) S/P spinal surgery: -This is a patient who on 04/29/2020 had L4-S1 Decompression and Fusion because of Lumbar spinal stenosis with neurogenic claudication and was operated on by orthopedics Dr. Shin at [facility] and then discharged from [facility] on 05/03/2020. Patient then placed on observation at [facility] because of back pain radiating down the left leg. Patient was then transferred to [facility] to be under the care of Dr. Shin and arrived on 05/20/2020. Dr. Shin has ordered MRI of the lumbar spine without contrast and also X ray of the left hip. In addition he requested hospitalist consult for "Medical Management." -Patient reports that at [facility] she has received tramadol and morph ine without acute reactions. She is not in acute distress at the bedside. Her left leg raise is difficult for her to do. She reports feeling numbness running down the left leg. She reports that the back pain is controlled when she is not changing body positions. She denies problems with urination or with bowel movements -prn pain medications, scheduled cyclobenzaprine (3) Sacral fracture: -s/p I&D of seroma, extension of lumbar fusion -Remains stable overall Hemoglobin remained stable at 10 encouraged oral fluid intake, use of incentive spirometry every 30 mins at least -Continue to monitor closely -Continue bowel regimen Hyponatremia Likely hypovolemic Start IV NSS (4) PAF (paroxysmal atrial fibrillation): - stable - continue home dose Metoprolol succinate 12.5 mg daily hold Xarelto, resume once hemostasis controlled per Dr. Shin, most likely by tomorrow Hypertension -metoprolol succinate 12.5 mg daily (5) Rheumatoid arthritis: per Dr. Chau Mckenzie's notes: -holding home dose weekly methotrexate at this time -methylprednisolone on home med rec is not for rheumatoid arthritis and patient not currently taking (6) Macular degeneration: with Sjogren's disease -continue xiidra eye drops Thank you for this consultation. We will follow the patient with you during their hospital stay. You can reach a member of the [facility] Hospitalist Team 03/05 via pager @ [phone]. Admission and Anticipated Discharge Date Admission Date: May 20, 2020 Subjective Follow-up for status post back surgery Seen resting in bed, sleeping but easily awakened States she feels about the same as yesterday Pain seems to be adequately controlled Denies chest pain, dizziness, shortness of breath, palpitations, nausea vomiting No other symptoms Review of Systems Review of Systems: All systems reviewed & are unremarkable except as noted in HPI & below Physical Exam Physical Exam: General- oriented x 3, not in distress, speaks in sentences with no effort or accessory muscle use Eyes- anicteric Neck- no JVD Lungs- clear BS bilaterally Heart- normal rate, regular rhythm; no murmurs Abdomen- normal bowel sounds, nondistended, soft, nontender Extremities- no pretibial edema, no calf tenderness Neuro- alert, oriented x 3; no gross focal neurologic deficits Skin- warm & dry Results & Data Results & Data ([facility]) Vital Signs (Past 12 Hours) Vital Signs Temp Pulse Resp BP Pulse Ox 05/25/20 15:18 37.6 C H 89 17 150/73 H 93 05/25/20 07:42 37.3 C 82 18 151/74 H 95 Laboratory Results Laboratory Results - last 24 hr 05/25/20 05/25/20 05/25/20 05:32 13:00 13:00 Sodium 131 L Potassium 4.4 Chloride 101 Carbon Dioxide 24 Anion Gap 6.0 BUN 7 Creatinine 0.41 L Est Cr Clr Drug Dosing 84.7 Est GFR ( Amer) 108.4 Est GFR (Non-Af Amer) 93.5 BUN/Creatinine Ratio 17.2 Glucose 82 Calcium 7.8 L COVID-19 Eval Order Covid[facility] SARS-CoV-2, RNA, NAAT NEGATIVE
[2020-05-25] MEDS: SODIUM CHLORIDE 0.9% 1000ML 1,000 ML IV SCH (19:01)
[2020-05-25] MEDS: DOCUSATE SODIUM/SENNA 50/8.6MG TAB PO SCH (20:14)
[2020-05-26] MEDS: TRAMADOL HCL 50 MG TABLET PO PRN ×3 (06:05→19:32)
[2020-05-26 07:20] LABS: Hematocrit (blood only) 28.3 % (37-47); Hemoglobin 9.7 g/dL (12.0-16.0); Mean Corpuscular Hemoglobin 34.3 pg (25-34); Mean Corpuscular Hgb Conc 34.3 g/dL (32-36); Mean Platelet Volume 9.3 fL (7.4-10.4); Platelet Count 250 K/uL (130-400); RDW Coefficient of Variation 14.1 % (11.5-14.5); RDW Standard Deviation 51.4 fL (36.4-46.3); Red Blood Count 2.83 M/uL (4.2-5.4); White Blood Count 12.64 K/uL (4.8-10.8)
[2020-05-26 07:44] LABS: BUN Creatinine Ratio 22.7 (10-20); Calcium 7.5 mg/dl (8.5-10.1); Creatinine Clr Calc Pharmacy 102.1 ml/min; Est GFR (African American) 115.3; Est GFR (Non-African American) 99.5; Potassium 3.8 mmol/L (3.5-5.1)
[2020-05-26] MEDS: SODIUM CHLORIDE 0.9% 1000ML 1,000 ML IV SCH (08:08)
[2020-05-26] MEDS: DOCUSATE SODIUM 100 MG CAP PO SCH ×2 (08:09→21:59)
[2020-05-26] MEDS: CYCLOBENZAPRINE HCL 10 MG TAB PO SCH ×3 (08:09→21:50)
[2020-05-26] MEDS: METOPROLOL SUCC 25MG EXT REL TAB PO SCH (08:10)
[2020-05-26] MEDS: NON-FORMULARY PATIENT'S OWN MED PO SCH ×2 (08:10→21:59)
[2020-05-26] MEDS: XIIDRA OP SCH ×2 (08:11→21:53)
--- NOTE | 2020-05-26 08:40 | Orthopedic Progress Note ---
Date of Service May 26, 2020 Assessment & Plan (1) Sacral fracture: Currently she is restricted from out of bed to chair activity. Has tentative SNF discharge tomorrow. Will order a KUB because of her new pain. Maintain JOANNA drain. Admission and Anticipated Discharge Date Admission Date: May 20, 2020 Supervising Physician Co-Signing Physician Notes Dr. Nick Shin [address] is status post extension of lumbar fusion into the pelvis due to S1-S2 fractures. She is tentatively scheduled to be discharged to [facility] tomorrow. She is overnight started to have some pain along the right lower anterior rib cage/abdominal area. Denies shortness of breath or chest pain. H&H are 9.7 and 28.3 respectively. JOANNA drain output last shift was 10 cc. Review of Systems Review of Systems: All systems reviewed & are unremarkable except as noted in HPI & below Physical Exam Physical Exam: She is lying in bed. Abdomen is soft. It appears slightly distended. She is alert and oriented x3. Lumbar dressing is clean dry and intact with functioning JOANNA drain. Strength is intact bilateral lower extremities. Calf soft nontender bi laterally. Results & Data ([facility]) Vital Signs (Past 12 Hours) Vital Signs Temp Pulse Resp BP Pulse Ox 05/26/20 07:35 36.9 C 85 20 127/67 93 05/25/20 23:16 37.1 C 89 16 135/73 92
--- NOTE | 2020-05-26 09:55 | XRay Report ---
KUB HISTORY: Acute right upper quadrant abdominal pain RUQ abdominal pain COMPARISON: None. FINDINGS: The bowel gas pattern is non-obstructive. Mildly prominent air-filled loops of bowel within the central abdomen appear physiologic. There is no organomegaly. No renal calculi. No ureteral trace culi. No pneumatosis or pneumoperitoneum. A catheter is noted with distal tip projected over the mid lumbar spine. Lumbar levoscoliosis. Posterior interbody diane and screw fusion hardware of the lower itzel mbar spine with bilateral iliac bolts. Hardware appears intact. Left hip total joint arthroplasty. Mo derate right hip osteoarthritis. IMPRESSION: Nonobstructive bowel gas pattern. ACT 112: Negative or not required by law. The above report was generated using voice recognition software. It may contain grammatical, syntax o r spelling errors. Electronically signed by: Christiano Valenzuela M.D. 05/26/2020 9:54 AM
--- NOTE | 2020-05-26 19:32 | Hospitalist Progress Note ---
Date of Service May 26, 2020 Assessment & Plan (1) Neurogenic claudication due to lumbar spinal stenosis: (2) S/P spinal surgery: -This is a patient who on 04/29/2020 had L4-S1 Decompression and Fusion because of Lumbar spinal stenosis with neurogenic claudication and was operated on by orthopedics Dr. Shin at [facility] and then discharged from [facility] on 05/03/2020. Patient then placed on observation at [facility] because of back pain radiating down the left leg. Patient was then transferred to [facility] to be under the care of Dr. Shin and arrived on 05/20/2020. Dr. Shin has ordered MRI of the lumbar spine without contrast and also X ray of the left hip. In addition he requested hospitalist consult for "Medical Management." -Patient reports that at [facility] she has received tramadol and morph ine without acute reactions. She is not in acute distress at the bedside. Her left leg raise is difficult for her to do. She reports feeling numbness running down the left leg. She reports that the back pain is controlled when she is not changing body positions. She denies problems with urination or with bowel movements -prn pain medications, scheduled cyclobenzaprine (3) Sacral fracture: -s/p I&D of seroma, extension of lumbar fusion -Patient continues to remain stable Hemoglobin remained stable at 10 encouraged oral fluid intake, use of incentive spirometry every 30 mins at least -Continue to monitor closely -Continue bowel regimen Hyponatremia Likely SIADH Osmolality, urine sodium and osmolality noted DC IV fluids Monitor sodium (4) PAF (paroxysmal atrial fibrillation): - stable - continue home dose Metoprolol succinate 12.[address] Shin, will resume Xarelto tonight Hypertension -metoprolol succinate 12.5 mg daily (5) Rheumatoid arthritis: per Dr. Chau Mckenzie's notes: -holding home dose weekly methotrexate at this time -methylprednisolone on home med rec is not for rheumatoid arthritis and patient not currently taking (6) Macular degeneration: with Sjogren's disease -continue xiidra eye drops Thank you for this consultation. We will follow the patient with you during their hospital stay. You [facility] via pager @ [phone]. Admission and Anticipated Discharge Date Admission Date: May 20, 2020 Subjective Follow-up for status post back surgery Seen resting in bed, comfortable, no distress States pain is medically controlled No chest pain, shortness of breath, dizziness, palpitations Denies other symptoms Review of Systems Review of Systems: All systems reviewed & are unremarkable except as noted in HPI & below Physical Exam Physical Exam: General- oriented x 3, not in distress, speaks in sentences with no effort or accessory muscle use Eyes- anicteric Neck- no JVD Lungs- clear BS, no crackles, no wheezing bilateral Heart- normal rate, regular rhythm; no murmurs Abdomen- normal bowel sounds, nondistended, soft, nontender Extremities- no pretibial edema, no calf tenderness Neuro- alert, oriented x 3; no gross focal neurologic deficits Skin- warm & dry Results & Data Results & Data ([facility]) Vital Signs (Past 12 Hours) Vital Signs Temp Pulse Resp BP Pulse Ox 05/26/20 14:27 36.9 C 84 16 155/66 H 92 05/26/20 07:35 36.9 C 85 20 127/67 93
[2020-05-26] MEDS: DOCUSATE SODIUM/SENNA 50/8.6MG TAB PO SCH (21:59)
[2020-05-26] MEDS: RIVAROXABAN 15 MG TAB PO SCH (21:59)
[2020-05-27 07:44] LABS: BUN Creatinine Ratio 27.1 (10-20); Calcium 7.4 mg/dl (8.5-10.1); Creatinine Clr Calc Pharmacy 108.5 ml/min; Est GFR (African American) 117.6; Est GFR (Non-African American) 101.5; Potassium 3.8 mmol/L (3.5-5.1)
[2020-05-27] MEDS: TRAMADOL HCL 50 MG TABLET PO PRN ×2 (07:44→12:22)
[2020-05-27] MEDS: CYCLOBENZAPRINE HCL 10 MG TAB PO SCH ×3 (07:44→20:45)
[2020-05-27] MEDS: XIIDRA OP SCH ×2 (07:45→20:46)
[2020-05-27] MEDS: DOCUSATE SODIUM 100 MG CAP PO SCH ×2 (07:45→20:46)
[2020-05-27] MEDS: METOPROLOL SUCC 25MG EXT REL TAB PO SCH (07:45)
[2020-05-27] MEDS: NON-FORMULARY PATIENT'S OWN MED PO SCH ×2 (07:46→20:45)
--- NOTE | 2020-05-27 13:39 | Orthopedic Progress Note ---
Date of Service May 27, 2020 Assessment & Plan (1) Sacral fracture: Admission and Anticipated Discharge Date Admission Date: May 20, 2020 This time we will continue bed to chair transfers. I have ordered an ultrasound of the gallbladder to rule out cholecystitis as an etiology for pain. Pending these results I may consider a CAT scan of the abdomen. Subjective Patient complaining of severe intermittent right upper quadrant pain. This did awaken her from sleep the other in the evening. He continues to be limited in nature. Her back pain is overall improved. She denies any leg pain. Physical Exam Physical Exam: On exam she is in bed. She does have strength testing lower extremities. Dressings in place. She does not have any gross tenderness palpation the right upper quadrant of her abdomen her abdomen is soft. Results & Data ([facility]) Vital Signs (Past 12 Hours) Vital Signs Temp Pulse Resp BP Pulse Ox 05/27/20 07:33 36.7 C 97 H 15 154/74 H 95
[2020-05-27] MEDS: RIVAROXABAN 15 MG TAB PO SCH (17:32)
--- NOTE | 2020-05-27 18:58 | Ultrasound Report ---
US gallbladder CLINICAL HISTORY: Right upper quadrant pain COMPARISON STUDY: KUB May 26, 2019. FINDINGS: No hepatic lesions are identified. There is no biliary ductal dilatation. The common bile d uct measures 6 mm in caliber. The pancreatic body is normal. Head and tail are partially obscured. Th e gallbladder is distended. There are suspected small stones within the gallbladder. There is no wall thickening. Sonographic Kerns sign was difficult to assess for in this patient. There is no right h ydronephrosis. Note is made of a 1.4 cm cyst within the upper pole of the right kidney. Incidental no te is made of a partially visualized right pleural effusion. IMPRESSION: 1. Partially visualized right pleural effusion, likely at least moderate in size. 2. Cholelithiasis and gallbladder distention. No gallbladder wall thickening. If clinically indicated , a hepatobiliary scan could be obtained to evaluate for acute cholecystitis. 3. No biliary ductal dilatation. ACT 112: Negative or not required by law. Electronically signed by: Colin Polk M.D. 05/27/2020 6:56 PM
--- NOTE | 2020-05-27 20:00 | Hospitalist Progress Note ---
Date of Service May 27, 2020 Assessment & Plan (1) Cholelithiasis: GB US: 1. Partially visualized right pleural effusion, likely at least moderate in size. 2. Cholelithiasis and gallbladder distention. No gallbladder wall thickening. If clinically indicated, a hepatobiliary scan could be obtained to evaluate for acute cholecystitis. 3. No biliary ductal dilatation. NO Kerns's sign RUQ pain resolved check Liver panel, CBC empiric Unasyn will resume diet monitor closely discussed with Dr. Shin if patient worsens overnight, will consult Gen Surg (2) Pleural effusion: seen on GB US check CXR (3) Neurogenic claudication due to lumbar spinal stenosis: (4) S/P spinal surgery: -This is a patient who on 04/29/2020 had L4-S1 Decompression and Fusion because of Lumbar spinal stenosis with neurogenic claudication and was operated on by orthopedics Dr. Shin at [facility] and then discharged from [facility] on 05/03/2020. Patient then placed on observation at [facility] because of back pain radiating down the left leg. Patient was then transferred to [facility] to be under the care of Dr. Shin and arrived on 05/20/2020. Dr. Shin has ordered MRI of the lumbar spine without contrast and also X ray of the left hip. In addition he requested hospitalist consult for "Medical Management." -Patient reports that at [facility] she has received tramadol and morphine without acute reactions. She is not in acute distress at the bedside. Her left leg raise is difficult for her to do. She reports feeling numbness running down the left leg. She reports that the back pain is controlled when she is not changing body positions. She denies problems with urination or with bowel movements -prn pain medications, scheduled cyclobenzaprine (5) Sacral fracture: -s/p I&D of seroma, extension of lumbar fusion - Patient continues to remain stable Hemoglobin remained stable at 10 encouraged oral fluid intake, use of incentive spirometry every 30 mins at least -Continue to monitor closely -Continue bowel regimen Hyponatremia Likely SIADH Osmolality, urine sodium and osmolality noted DC IV fluids, fluid restriction 1500cc/day Monitor sodium (6) PAF (paroxysmal atrial fibrillation): - stable - continue home dose Metoprolol succinate 12.5 mg daily and Xarelto Hypertension -metoprolol succinate 12.5 mg daily (7) Rheumatoid arthritis: per Dr. Chau Mckenzie's notes: -holding home dose weekly methotrexate at this time -methylprednisolone on home med rec is not for rheumatoid arthritis and patient not currently taking (8) Macular degeneration: with Sjogren's disease -continue xiidra eye drops Thank you for this consultation. We will follow the patient with you during their hospital stay. You [facility]05 via pager @ [phone]. Admission and Anticipated Discharge Date Admission Date: May 20, 2020 Subjective ff up for post op back surgery seen resting in bed, comfortable, not in distress states she feels much better than this morning RUQ pain has resolved no nausea, chills denies SOB, chest pain, dizziness, palpitations, bleeding back pain well controlled hungry, requesting to have diet resumed no other symptoms Review of Systems Review of Systems: All systems reviewed & are unremarkable except as noted in HPI & below Physical Exam Physical Exam: General- oriented x 3, not in distress, speaks in sentences with no effort or accessory muscle use Eyes- anicteric Neck- no JVD Lungs- clear breath sounds bilaterally, no rales/wheezes Heart- normal rate, regular rhythm; no murmurs Abdomen- normal bowel sounds, nondistended, soft, nontender no Kerns's sign Extremities- no pretibial edema, no calf tenderness Neuro- alert, oriented x 3; no gross focal neurologic deficits Skin- warm & dry Results & Data Results & Data ([facility]) Laboratory Results pending, will follow pu
[2020-05-27] MEDS ORDERED: AMPICILLIN/SULBACTAM CONSULT ACTIVE PRN (20:02)
--- NOTE | 2020-05-27 20:16 | XRay Report ---
XR chest 1V portable CLINICAL HISTORY: r/o pleural effusion COMPARISON STUDY: Chest radiograph February 06, 2016. FINDINGS: A small to moderate right pleural effusion is noted. There is mild right basilar opacity. N ote is made of pulmonary vascular congestion without overt pulmonary edema. Mild cardiomegaly is note d. There is S-shaped scoliosis of the thoracolumbar spine. There is no pneumothorax. IMPRESSION: 1. Small to moderate right pleural effusion. 2. Pulmonary vascular congestion without overt pulmonary edema. ACT 112: Negative or not required by law. Electronically signed by: Colin Polk M.D. 05/27/2020 8:14 PM
[2020-05-27 20:24] LABS: Basophils # (auto) 0.01 K/uL (0-0.2); Basophils % (auto) 0.1 %; Eosinophils # (auto) 0.06 K/uL (0-0.5); Eosinophils % (auto) 0.6 %; Hematocrit (blood only) 28.3 % (37-47); Hemoglobin 9.6 g/dL (12.0-16.0); Immature Granulocytes # (auto) 0.03 K/uL (0.00-0.02); Immature Granulocytes % (auto) 0.3 %; Lymphocytes # (auto) 0.81 K/uL (1.2-3.4); Lymphocytes % (auto) 7.5 %; Mean Corpuscular Hemoglobin 33.9 pg (25-34); Mean Corpuscular Hgb Conc 33.9 g/dL (32-36); Mean Platelet Volume 9.4 fL (7.4-10.4); Monocytes # (auto) 0.78 K/uL (0.11-0.59); Monocytes % (auto) 7.2 %; Neutrophils # (auto) 9.07 K/uL (1.4-6.5); Neutrophils % (auto) 84.3 %; Platelet Count 268 K/uL (130-400); RDW Standard Deviation 51.4 fL (36.4-46.3); Red Blood Count 2.83 M/uL (4.2-5.4); White Blood Count 10.76 K/uL (4.8-10.8)
[2020-05-27] MEDS: DOCUSATE SODIUM/SENNA 50/8.6MG TAB PO SCH (20:46)
[2020-05-27] MEDS: AMPICILLIN/SULBACTAM SOD 3,000 MG in 0.9 % SODIUM CHLORIDE 100 ML IV SCH (20:50)
[2020-05-27 20:53] LABS: Alanine Aminotransferase 18 U/L (12-78); Albumin Level 1.9 gm/dl (3.4-5.0); Alkaline Phosphatase 181 U/L (45-117); Aspartate Aminotransferase 36 U/L (15-37); Bilirubin,Total 0.7 mg/dl (0.2-1); Blood Urea Nitrogen 9 mg/dl (7-18); Calcium 8.4 mg/dl (8.5-10.1); Carbon Dioxide 23 mmol/L (21-32); Chloride 96 mmol/L (98-107); Creatinine Clr Calc Pharmacy 80.7 ml/min; Est GFR (African American) 106.7; Est GFR (Non-African American) 92.1; Glucose 78 mg/dl (70-99); Potassium 3.8 mmol/L (3.5-5.1); Sodium 127 mmol/L (136-145); Total Protein 6.8 gm/dl (6.4-8.2)
[2020-05-27] MEDS ORDERED: FUROSEMIDE 20 MG in SYRINGE 0 ML IV ONE (21:45)
[2020-05-28] MEDS: AMPICILLIN/SULBACTAM SOD 3,000 MG in 0.9 % SODIUM CHLORIDE 100 ML IV SCH ×3 (01:53→13:32)
[2020-05-28] MEDS: ACETAMINOPHEN 500 MG TAB PO PRN ×2 (04:56→09:49)
[2020-05-28 07:14] LABS: BUN Creatinine Ratio 26.7 (10-20); Calcium 7.9 mg/dl (8.5-10.1); Est GFR (African American) 118.9; Est GFR (Non-African American) 102.6; Potassium 3.3 mmol/L (3.5-5.1)
[2020-05-28] MEDS ORDERED: POTASSIUM CHLORIDE 20 MEQ TABCR PO STA ×2 (08:11→12:29)
--- NOTE | 2020-05-28 08:34 | Discharge Summary ---
Date of Service May 28, 2020 Admission HPI Per Admitting Provider This is a 85-year-old female who presents with marked decline in status over the past week. She had been doing wonderfully postoperatively but began experiencing lumbosacral back pain radiating into left buttock and now down the left leg. Is incapacitating nature. She is unable to ambulate. She only responds to IV narcotics for any pain control. The right lower extremity does not appear to be affected. Principal Diagnosis Sacral insufficiency fracture Discharge Data Allergies Allergy/AdvReac Type Severity Reaction Status Date / Time cevimeline AdvReac Unknown vision Verified 05/22/20 12:15 affected fentanyl AdvReac Unknown severe Verified 05/22/20 12:15 nausea loratadine AdvReac Unknown Headache Verified 05/22/20 12:15 NSAIDS (Non-Steroidal AdvReac Unknown n/v Verified 05/22/20 12:15 Anti-Inflamma oxycodone [From OxyContin] AdvReac Vomiting Verified 05/22/20 12:15 pregabalin [From Lyrica] AdvReac Dizziness Verified 05/22/20 12:15 Consultations 05/20/20 15:33 Consult Internal Medicine Routine 05/20/20 16:29 Consult Case Management - Discharge Planning Routine 05/22/20 17:07 Consult Case Management - Discharge Planning Routine Procedures Performed Operation Date: 05/22/20 12:55 Actual Procedures p Lumbosacral Fusion with Iliac Bolts with Stimulan Beads, Application of Bone Morphogenetic Protein(Not Applicable) - Nick Shin, Ordered Studies 05/20/20 15:33 MR lumbar spine wo con Routine 05/22/20 12:55 FL fluoroscopy <1hr Routine FL lumbar spine 2-3V Routine 05/27/20 13:37 US gallbladder Urgent Hospital Course (1) Sacral fracture: Patient was admitted to the hospital with a marked decline in status after surgery. Imaging demonstrated evidence of a sacral insufficiency fracture beneath her spinal fusion. Subsequently we elected to surgery and stabilize across the fracture with iliac bolts. This provided marked improvement in her ability to transfer and ambulate. Her leg symptoms also improved. Subsequently she was discharged to a nursing facility. Discharge orders instructions from the chart for further review. Total Time Total Time Spent Total Time Spent (In Minutes): 20 minutes Discharge Plan Discharge Items Patient Disposition: Transfer [facility] Reason For Visit: INTRACTABLE BACK PAIN Discharge Diagnosis: Sacral insufficiency fracture Activity: As commented below Non-emergency contact: Primary Care Provider Call non-emergency contact if: you have any medication questions Follow-up/Referrals: Radha Driver M.D. [Primary Care Provider] - Diet: Regular Addtl Attending Provider Instructions: ACTIVITY RECOMMENDATIONS: SELF CARE INSTRUCTIONS AFTER THORACIC/LUMBAR FUSIONS 1. You may walk to your tolerance. It is good exercise for your legs and back. Expect some back and intermittent leg aches and pains. 2. You may perform "counter-top" level activities (make a sandwich, arnaud with a project, etc.). 3. No bending or lifting of more than 10 pounds or back twisting of any nature (roll like a log when turning in bed). 4. You may ride in a car for 20-30 minutes at a time. No driving until after your first visit with your doctor. 5. Frequent changes of position and restricting sitting to 30 minutes at a time will help limit the amount of back spasms and stiffness you may experience. 6. You may discontinue the use of ambulatory aids (cane, crutches, etc.) once your strength and confidence allow. 7. You may zipper lining folder the shower and let water strike your incision when you arrive home at least once daily. Do not take a tub bath, sit in a hot tub or go into a swimming pool until after your first recheck in the office. SPECIAL CARE INSTRUCTIONS: VERY IMPORTANT TO READ AND REVIEW A. Your surgical incision has been closed with a cosmetic suture under the skin that will dissolve in about 6 weeks. In 14 days, you can use a pair of clean scissors and cut the suture that is left outside of the skin at the ends of your incision. 1. The small skin tapes can be removed 7 days after surgery if they have not fallen off by that point. 2. You may keep the wound open to air as much as possible to promote healing after post-op day number 5 unless told otherwise by your doctor. 3. If you think the wound looks like it is becoming infected (redness or worsening drainage) and/or you are experiencing fever, chill or worsening back pain and muscle spasms, contact the office so that we may evaluate you as soon as possible. B. Complications are uncommon, but please contact us if you have any signs or symptoms of: 1. wound infection (fever higher than 102.5 degrees F, redness, separation of wound, drainage, or increasing pain from the incision) 2. blood clots in legs (pain, swelling, redness and warmth in legs) 3. urinary tract infection (fever higher than 102.5 degrees F, burning upon urination or increased frequency of urination) 4. nerve problems (inability to walk on your toes or heels, numbness, loss of bowel or bladder control) 5. any other symptoms that concern you C. Please call the office at if you have any concerns or questions about your operation or recovery. D. No smoking! Smoking drastically decreases the chance of a solid fusion. E. Do not take any anti-inflammatory medications (Indocin, Advil, Motrin, Aspirin, Naprosyn, etc.) as these may inhibit the chance of a solid fusion. Tylenol is okay to take for pain. MANAGING PAIN AFTER SPINAL SURGERY 1. Narcotic medication is intended for short-term use and will be provided for surgical pain. Surgical pain usually lasts for a period of 4-6 weeks. Narcotic medication includes Percocet, Vicodin, Darvocet, Tylenol #3 or Lortab. 2. Longer-term pain is more appropriately treated with non-narcotic medication such as Tylenol ES. 3. Muscle spasm is not appropriately treated with narcotics. Muscle relaxers such as Soma, Flexeril or Skelaxin can be used along with Tylenol ES. 4. Remember that we all live with some "aches and pains". This is not unusual or uncommon after an injury or as we get older. a. Back pain is expected and may include muscle spasms for 4 to 6 weeks after surgery. The pain should gradually improve. If the pain worsens for no apparent reason, please contact the office. b. Intermittent leg pain may also be experienced and should not be concerned about unless it worsens for no apparent reason. If so, please contact the office. 5. We will provide appropriate medication within the normal guidelines of their prescribed use. We will also be very cautious and aware of potential abuse and extended duration of patients' medication needs. a. Pain medications are for your comfort and to assist with sleep and rest so that the tissue can heal. They are not provided in order to return to normal activity and should not be used through the day. To do so or worsening pain at night can result from ongoing tissue damage and development of tolerance to the prescribed medicine. 6. Please allow 2-3 days to process refills. Prescriptions will not be mailed but must be picked up at the office. FOLLOW UP VISIT: Keep your scheduled follow-up appointment. Any questions, please call the office at . Pending Studies at Discharge: No Stand-Alone Forms: My [facility] Skilled Items Patient informed of condition?: Yes DNR: No Discharge Level of Care: Skilled Communicable Disease: No Discharge Prognosis: Improving Lines: None Urinary Catheter: No Medications and DC Order Prescriptions: New tramadol 50 mg tablet 50 mg PO Q6H PRN (Reason: pain, moderate) Qty: 30 RF: 0 Xarelto 15 mg Tablet 15 mg PO DAILY@1700 Qty: 30 RF: 0 Continued folic acid 1 mg Tablet 1 mg PO QAM RF: 0 metoprolol succinate 25 mg Tablet Extended Release 24 Hr 12.5 mg PO QAM RF: 0 Calcium 600 + D(3) 600 mg calcium- 200 unit Capsule 1 cap PO BID RF: 0 cholecalciferol (vitamin D3) [Vitamin D3] 25 mcg (1,000 unit) Tablet,Chewable 25 mcg PO PM RF: 0 Centrum Silver Women 8 mg iron-400 mcg-300 mcg Tablet 1 tab PO QAM RF: 0 Xarelto 15 mg Tablet 15 mg PO PM RF: 0 lutein 40 mg Capsule 40 mg PO PM RF: 0 Osteo Bi-Flex Triple Strength 750 mg-644 mg- 30 mg-1 mg Tablet 1 tab PO PM RF: 0 Fish Oil 900 mg-360 mg- 455 mg-1,000 mg Capsule 2 cap PO BID RF: 0 lifitegrast 5 % Dropperette 1 drp OPHTHALMIC (EYE) BID RF: 0 tramadol 50 mg tablet 50 mg PO Q6H PRN (Reason: pain, moderate) Qty: 30 RF: 0 cyclobenzaprine 10 mg Tablet 10 mg PO TID RF: 0 methylprednisolone 4 mg Tablet 4 mg PO DAILY RF: 0 methotrexate sodium 2.5 mg Tablet 2.5 mg PO WK RF: 0 docusate sodium 100 mg Capsule 100 mg PO BID RF: 0 Discharge Orders: Discharge Order (Routine); Ordered 05/28/20 Ordered By: Nick Shin Admission Data Admit Date/Time: 05/20/20 14:36 Attending Provider: Nick Shin Admit Provider: Nick Shin Primary Care Provider: Radha Driver Other Providers: Chau Mckenzie ; Emerson Anand ; Melquiades Casanova
[2020-05-28] MEDS: NON-FORMULARY PATIENT'S OWN MED PO SCH (09:35)
[2020-05-28] MEDS: XIIDRA OP SCH (09:36)
[2020-05-28] MEDS: METOPROLOL SUCC 25MG EXT REL TAB PO SCH (09:37)
[2020-05-28] MEDS: DOCUSATE SODIUM 100 MG CAP PO SCH (09:37)
[2020-05-28] MEDS: CYCLOBENZAPRINE HCL 10 MG TAB PO SCH ×2 (09:38→13:26)
--- NOTE | 2020-05-28 12:24 | Hospitalist Progress Note ---
Date of Service May 28, 2020 Assessment & Plan (1) Cholelithiasis: GB US: 1. Partially visualized right pleural effusion, likely at least moderate in size. 2. Cholelithiasis and gallbladder distention. No gallbladder wall thickening. If clinically indicated, a hepatobiliary scan could be obtained to evaluate for acute cholecystitis. 3. No biliary ductal dilatation. NO Kerns's sign RUQ pain resolved afebrile Liver Panel no signs of acute cholecystitis, no leukocytosis empiric Unasyn given, discontinue now (2) Pleural effusion: seen on GB US confirmed on CXR Lasix 20mg IV given one dose of Lasix 40mg po before discharge, with K repeat CXR in 1 week ff up as outpatient (3) Neurogenic claudication due to lumbar spinal stenosis: (4) S/P spinal surgery: -This is a patient who on 04/29/2020 had L4-S1 Decompression and Fusion because of Lumbar spinal stenosis with neurogenic claudication and was operated on by orthopedics Dr. Shin at [facility] and then discharged from [facility] on 05/03/2020. Patient then placed on observation at [facility] because of back pain radiating down the left leg. Patient was then transferred to [facility] to be under the care of Dr. Shin and arrived on 05/20/2020. Dr. Shin has ordered MRI of the lumbar spine without contrast and also X ray of the left hip. In addition he requested hospitalist consult for "Medical Management." -Patient reports that at [facility] she has received tramadol and morphine without acute reactions. She is not in acute distress at the bedside. Her left leg raise is difficult for her to do. She reports feeling numbness running down the left leg. She reports that the back pain is controlled when she is not changing body positions. She denies problems with urination or with bowel movements -prn pain medications, scheduled cyclobenzaprine (5) Sacral fracture: -s/p I&D of seroma, extension of lumbar fusion - Patient continues to remain stable Hemoglobin remained stable at 10 encouraged oral fluid intake, use of incentive spirometry every 30 mins at least -Continue bowel regimen Hyponatremia Likely SIADH Osmolality, urine sodium and osmolality noted DC IV fluids, fluid restriction 1500cc/day give Lasix as noted above Monitor sodium in 2 days, then regularly until stable Hypokalemia from Lasix given PO K repeat in 2 days, then regularly (6) PAF (paroxysmal atrial fibrillation): - stable - continue home dose Metoprolol succinate 12.5 mg daily and Xarelto Hypertension -metoprolol succinate 12.5 mg daily (7) Rheumatoid arthritis: per Dr. Chau Mckenzie's notes: -holding home dose weekly methotrexate at this time -methylprednisolone on home med rec is not for rheumatoid arthritis and patient not currently taking (8) Macular degeneration: with Sjogren's disease -continue xiidra eye drops Thank you for this consultation. We will follow the patient with you during their hospital stay. You can reach a member of the [facility] Hospitalist Team 03/05 via pager @ [phone]. Admission and Anticipated Discharge Date Admission Date: May 20, 2020 Subjective ff up for post op back surgery seen resting in bed, sleeping but easily awakened states she feels fine overall denies abdominal pain, nausea/vomiting, chills no shortness of breath, cough, fever/chills, sputum denies chest pain, palpitations, dizziness no other symptoms states she is ready for discharge today Review of Systems Review of Systems: All systems reviewed & are unremarkable except as noted in HPI & below Physical Exam Physical Exam: General- oriented x 3, not in distress, speaks in sentences with no effort or accessory muscle use Eyes- anicteric Neck- no JVD Lungs- clear breath sounds bilaterally no crackles, no wheezing Heart- normal rate, regular rhythm; no murmurs Abdomen- normal bowel sounds, nondistended, soft, nontender no Kerns's sign Extremities- no pretibial edema, no calf tenderness Neuro- alert, oriented x 3; no gross focal neurologic deficits Skin- warm & dry Results & Data Results & Data ([facility]) Vital Signs (Past 12 Hours) Vital Signs Temp Pulse Resp BP Pulse Ox 05/28/20 07:40 36.8 C 85 16 151/72 H 93 Laboratory Results Laboratory Results - last 24 hr 05/27/20 05/27/20 05/27/20 20:13 20:13 21:15 WBC 10.76 RBC 2.83 L Hgb 9.6 L Hct 28.3 L MCV 100.0 MCH 33.9 MCHC 33.9 RDW Std Deviation 51.4 H RDW Coeff of Katey 14.0 Plt Count 268 MPV 9.4 Immature Gran % (Auto) 0.3 Neut % (Auto) 84.3 Lymph % (Auto) 7.5 [place] % (Auto) 7.2 Eos % (Auto) 0.6 Baso % (Auto) 0.1 Neut # (Auto) 9.07 H Lymph # (Auto) 0.81 L [place] # (Auto) 0.78 H Eos # (Auto) 0.06 Baso # (Auto) 0.01 Immature Gran # (Auto) 0.03 H Sodium 127 L Potassium 3.8 Chloride 96 L Carbon Dioxide 23 Anion Gap 8.0 BUN 9 Creatinine 0.43 L Est Cr Clr Drug Dosing 80.7 Est GFR ( Amer) 106.7 Est GFR (Non-Af Amer) 92.1 BUN/Creatinine Ratio 22.0 H Glucose 78 Calcium 8.4 L Total Bilirubin 0.7 Direct Bilirubin TNP 0.3 H AST 36 ALT 18 Alkaline Phosphatase 181 H Total Protein 6.8 Albumin 1.9 L Specimen Hemolysis 05/28/20 05:36 WBC RBC Hgb Hct MCV MCH MCHC RDW Std Deviation RDW Coeff of Katey Plt Count MPV Immature Gran % (Auto) Neut % (Auto) Lymph % (Auto) [place] % (Auto) Eos % (Auto) Baso % (Auto) Neut # (Auto) Lymph # (Auto) [place] # (Auto) Eos # (Auto) Baso # (Auto) Immature Gran # (Auto) Sodium 128 L Potassium 3.3 L Chloride 97 L Carbon Dioxide 23 Anion Gap 8.0 BUN 8 Creatinine 0.31 L Est Cr Clr Drug Dosing 112.0 Est GFR ( Amer) 118.9 Est GFR (Non-Af Amer) 102.6 BUN/Creatinine Ratio 26.7 H Glucose 90 Calcium 7.9 L Total Bilirubin Direct Bilirubin AST ALT Alkaline Phosphatase Total Protein Albumin Specimen Hemolysis
[2020-05-28] MEDS ORDERED: FUROSEMIDE 20 MG TAB PO ONE (12:30)
[2020-05-28] MEDS ORDERED: POTASSIUM CHLORIDE PWD 20 MEQ PACK PO ONE (13:00)
== END 2020-05-28 15:22 | DRG 460 ==
LOC: 3W 14:36